=== PATIENT | female | born 1980 | race Caucasian/White ===

== ENCOUNTER 2023-07-15 14:33 | Outpatient (OUT) | payer OTHER, SELFPAY ==
[2023-07-15 15:14] LABS: Basophils Percent Auto 0.5 % (0.2-2.0); Eosinophils Absolute Auto 0.1 10^3/uL (0.0-0.7); Eosinophils Percent Auto 1.9 % (0.9-7.0); Hematocrit 37.9 % (36.0-48.0); Hemoglobin 12.4 g/dL (12.0-16.0); Immature Granulocytes Abs Auto 0.02 10^3/uL (0.00-0.03); Immature Granulocytes Pct Auto 0.3 % (0.0-0.5); Lymphocytes Absolute Auto 3.2 10^3/uL (1.2-3.8); Lymphocytes Percent Auto 43.2 % (20.5-60.0); Mean Corpuscular HGB Conc 32.7 g/dL (29.9-35.2); Mean Corpuscular Volume 82.4 fL (81.0-99.0); Mean Platelet Volume 11.4 fL (9.5-13.5); Monocytes Absolute Auto 0.5 10^3/uL (0.3-0.8); Monocytes Percent Auto 6.1 % (1.7-12.0); Neutrophils Absolute Auto 3.5 10^3/uL (1.4-6.5); Platelet Count 355 10^3/uL (150-450); Red Cell Distribution Width 13.2 % (11.0-15.0); White Blood Count 7.3 10^3/uL (4.0-11.0)
[2023-07-15 15:28] LABS: Bilirubin Urine NEGATIVE (NEGATIVE); Blood Urine NEGATIVE (NEGATIVE); Clarity Urine CLEAR (CLEAR); Color Urine LT. YELLOW (YELLOW); Glucose Urine UA NEGATIVE (NEGATIVE); Ketones Urine NEGATIVE (NEGATIVE); Leukocyte Esterase Urine SMALL (NEGATIVE); Nitrite Urine NEGATIVE (NEGATIVE); Protein Urine NEGATIVE (NEG/TRACE); Specific Gravity Urine <=1.005 (1.005-1.025); Urobilinogen Urine 0.2 EU/dL (0.2-1.0)
[2023-07-15 15:49] LABS: Bacteria Urine TRACE #/HPF (NONE SEEN); Cast Seen? NONE SEEN #/LPF (NONE SEEN); Crystals Seen? None Seen #/HPF (None Seen); Mucus Urine NONE SEEN (NONE SEEN); RBC Urine NONE SEEN #/HPF (0-2); Squamous Epithelial Cell Urine FEW #/LPF (NONE/RARE); WBC Urine 0-2 #/HPF (NONE SEEN)
[2023-07-15 15:55] LABS: Alanine Aminotransferase 26 U/L (14-59); Albumin Globulin Ratio 1.1; Alkaline Phosphatase 81 U/L (46-116); Amylase 44 U/L (25-115); Aspartate Amino Transferase 18 U/L (15-37); BUN Creatinine Ratio 9.9; Bilirubin Total 0.3 mg/dL (0.2-1.0); Calcium 9.3 mg/dL (8.5-10.1); Carbon Dioxide 26.5 mmol/L (21.0-32.0); Chloride 101 mmol/L (98-107); Estimated GFR (African America >60 (>=60); Estimated GFR (Non-African Ame >60 (>=60); Globulin 3.5 g/dL; Glucose 104 mg/dL (74-106); Potassium 3.5 mmol/L (3.5-5.1); Sodium 138 mmol/L (136-145); Total Protein 7.5 g/dL (6.4-8.2)
== END 2023-07-15 14:34 | disposition home or self-care (01) ==
LOC: LAB 14:37
PROVIDERS: PCP Family Medicine; Visit Provider Family Medicine
DX: R10.32 Left lower quadrant pain (principal)
CPT/HCPCS: 36415; 80053; 81001; 82150; 83690; 85025; 87086

== ENCOUNTER 2023-07-18 07:40 | Outpatient (OUT) | payer OTHER, SELFPAY ==
--- OUTSIDE RECORDS SUMMARY | 2023-07-18 07:45 | XMS_ITS | CCD ---
Author Organization [place] [facility] Care Team Providers Care [place] Alarm Inspector Name Role Phone DR GA LUNA Attending Unavailable CHERYL, DR KOROMA Admitting Unavailable DR GA LUNA Primary Care Unavailable DR GA LUNA Consulting Unavailable DR GA LUNA Admitting Unavailable CHERYL, DR KOROMA Primary Care Unavailable DR GA LUNA Consulting Unavailable CHERYL, DR KOROMA Attending Unavailable Results Test Name Value Interpretation Reference Range Facil ity INSULINon 12-02-2021 Insulin 23.2 uIU/mL Normal 2.6-24.9 [facility] Comment on above: Performed By: #### I NSULIN #### [facility] [address] [place] [address] Dr. Tequila Du CBC AUTO DIFFon 11-30-2021 BASO # 0.0 103/ul Normal 0.0-0.1 [facility] Comment on above: Performed By: #### C BC #### [facility] [address] [place] [address] Dr. Tequila Du Basophils/100 WBC (Bld) 0.6 % Normal 0.2-2.0 [facility] Comment on above: Performed By: #### C BC #### [facility] [address] [place] [address] Dr. Tequila Du EO # 0.2 103/ul Normal 0.0-0.7 [facility] Comment on above: Performed By: #### C BC #### [facility] [address] [place] [address] Dr. Tequila Du Eosinophils/100 WBC (Bld) 2.2 % Normal 0.9-7.0 [facility] Comment on above: Performed By: #### C BC #### [facility] [address] [place] [address] Dr. Tequila Du Erythrocyte distribution width (RBC) [Ratio] 13.2 % Normal 11.0-15.0 [facility] Comment on above: Performed By: #### C BC #### [facility] [address] [place] [address] Dr. Tequila Du Hematocrit (Bld) [Volume fraction] 42.3 % Normal 36.0-48.0 [facility] Comment on above: Performed By: #### C BC #### [facility] [address] [place] [address] Dr. Tequila Du Hemoglobin (Bld) [Mass/Vol] 13.6 g/dL Normal 12.0-16.0 [facility] Comment on above: Performed By: #### C BC #### [facility] [address] [place] [address] Dr. Tequila Du IG # 0.01 10e3/ul Normal 0.00-0.03 [facility] Comment on above: Performed By: #### C BC #### [facility] [address] [place] [address] Dr. Tequila Du IG % 0.1 % Normal 0.0-0.5 [facility] Comment on above: Performed By: #### C BC #### [facility] [address] [place] [address] Dr. Tequila Du LYMPH # 2.1 103/ul Normal 1.2-3.8 [facility] Comment on above: Performed By: #### C BC #### [facility] [address] [place] [address] Dr. Tequila Du Lymphocytes/100 WBC (Bld) 30.8 % Normal 20.5-60.0 [facility] Comment on above: Performed By: #### C BC #### [facility] [address] [place] [address] Dr. Tequila Du MANUAL DIFF REQ NO Normal [facility] Comment on above: Performed By: #### C BC #### [facility] [address] [place] [address] Dr. Tequila Du MCH (RBC) [Entitic mass] 27.4 pg Normal 26.7-34.0 [facility] Comment on above: Performed By: #### C BC #### [facility] [address] [place] [address] Dr. Tequila Du MCHC (RBC) [Mass/Vol] 32.2 g/dL Normal 29.9-35.2 [facility] Comment on above: Performed By: #### C BC #### [facility] [address] [place] [address] Dr. Tequila Du MCV (RBC) [Entitic vol] 85.3 fL Normal 81.0-99.0 [facility] Comment on above: Performed By: #### C BC #### [facility] [address] [place] [address] Dr. Tequila Du MONO # 0.4 103/ul Normal 0.3-0.8 [facility] Comment on above: Performed By: #### C BC #### [facility] [address] [place] [address] Dr. Tequila Du Monocytes/100 WBC (Bld) 6.4 % Normal 1.7-12.0 [facility] Comment on above: Performed By: #### C BC #### [facility] [address] [place] [address] Dr. Tequila Du NEUT # 4.1 103/ul Normal 1.4-6.5 [facility] Comment on above: Performed By: #### C BC #### [facility] [address] [place] [address] Dr. Tequila Du Neutrophils/100 WBC (Bld) 59.9 % Normal 43.0-75.0 [facility] Comment on above: Performed By: #### C BC #### [facility] [address] [place] [address] Dr. Tequila Du Platelet mean volume (Bld) [Entitic vol] 10.5 fL Normal 9.5-13.5 [facility] Comment on above: Performed By: #### C BC #### [facility] [address] [place] [address] Dr. Tequila Du PLT 277 103/ul Normal 150-450 [facility] Comment on above: Performed By: #### C BC #### [facility] [address] [place] [address] Dr. Tequila Du RBC 4.96 106/ul Normal 4.20-5.40 [facility] Comment on above: Performed By: #### C BC #### [facility] [address] [place] [address] Dr. Tequila Du WBC 6.9 103/ul Normal 4.0-11.0 [facility] Comment on above: Performed By: #### C BC #### [facility] [address] [place] [address] Dr. Tequila Du FREE THYROXINE INDEX T7on FTI 2.59 Normal 1.30-4.50 [facility] Comment on above: Performed By: #### L IPID, CMP, T7, TSH #### [facility] [address] [place] [address] Dr. Tequila Du T3U 32.0 % Normal 30.0-39.0 [facility] Comment on above: Performed By: #### L IPID, CMP, T7, TSH #### [facility] [address] [place] [address] Dr. Tequila Du T4 [Mass/Vol] 8.10 ug/dL Normal 4.80-13.90 [facility] Comment on above: Performed By: #### L IPID, CMP, T7, TSH #### [facility] [address] [place] [address] Dr. Tequila Du GLYCOHEMOGLOBIN A1Con 2021 ADA RECOMMENDATION SEE BELOW Normal [facility] Comment on above: Result Comment: ADA RECOMMENDED LIMIT 4.0 - 6.0 ADA THERAPEUTIC TARGET < 7.0 ACTION SUGGESTED > 7.0 Performed By: #### A 1C #### [facility] [address] [place] [address] Dr. Tequila Du Glucose [Mass/Vol] 105 mg/dL Normal [facility] Comment on above: Performed By: #### A 1C #### [facility] [address] [address] [address] Tequila Du HbA1c (Bld) [Mass fraction] 5.3 % Normal 4.5-6.2 [facility] Comment on above: Performed By: #### A 1C #### [facility] [address] [place] [address] Dr. Tequila Du LIPID PROFILEon 11-30-2021 CHOL-HDL RATIO NORM SEE BELOW Normal [facility] Comment on above: Result Comment: 3.3 - 4.4 LOW RISK 4.4 - 7.1 AVERAGE RISK 7.1 - 11.0 MODERATE RISK >11.0 HIGH RISK Performed By: #### L IPID, CMP, T7, TSH #### [facility] [address] [place] [address] Dr. Tequila Du Cholesterol [Mass/Vol] 213 mg/dL Critically high <=200 [facility] Comment on above: Performed By: #### L IPID, CMP, T7, TSH #### [facility] [address] [address] [address] Tequila Du Cholesterol in HDL [Mass/Vol] 34 mg/dL Critically low 40-60 [facility] Comment on above: Performed By: #### L IPID, CMP, T7, TSH #### [facility] [address] [address] [address] Tequila Du Cholesterol in LDL [Mass/Vol] 142.2 mg/dL Normal [facility] Comment on above: Performed By: #### L IPID, CMP, T7, TSH #### [facility] [address] [address] [address] Tequila Du Cholesterol.total/Cho lesterol in HDL [Mass ratio] 6.3 {ratio} Normal [facility] Comment on above: Performed By: #### L IPID, CMP, T7, TSH #### [facility] [address] [address] [address] Tequila Du HDL NORMAL > or = 60 mg/dl - LOW CARDIOVASCULAR RISK <40 mg/dl - HIGH CARDIOVASCULAR RISK Normal [facility] Comment on above: Performed By: #### L IPID, CMP, T7, TSH #### [facility] [address] [address] [address] Tequila Du LDL CALC NORMAL SEE BELOW Normal [facility] Comment on above: Result Comment: <100 mg/dl OPTIMAL 100 - 129 mg/dl NEAR OR ABOVE OPTIMAL 130 - 159 mg/dl BORDERLINE HIGH 160 - 189 mg/dl HIGH >190 mg/dl VERY HIGH Performed By: #### L IPID, CMP, T7, TSH #### [facility] [address] [address] [address] Tequila Du Triglyceride [Mass/Vol] 184 mg/dL Critically high <=150 [facility] Comment on above: Performed By: #### L IPID, CMP, T7, TSH #### [facility] [address] [address] [address] Tequila Du VLDL CALC 36.8 mg/dL Normal [facility] Comment on above: Performed By: #### L IPID, CMP, T7, TSH #### [facility] [address] [place] [address] Dr. Tequila Du PROF 14(COMP METB)on 022 Albumin [Mass/Vol] 4.0 g/dL Normal 3.4-5.0 [facility] Comment on above: Performed By: #### L IPID, CMP, T7, TSH #### [facility] [address] [address] [address] Tequila Du Albumin/Globulin [Mass ratio] 1.2 {ratio} Normal [facility] Comment on above: Performed By: #### L IPID, CMP, T7, TSH #### [facility] [address] [place] [address] Dr. Tequila Du ALP [Catalytic activity/Vol] 73 U/L Normal 46-116 [facility] Comment on above: Performed By: #### L IPID, CMP, T7, TSH #### [facility] [address] [place] [address] Dr. Tequila Du ALT [Catalytic activity/Vol] 44 U/L Normal 14-59 [facility] Comment on above: Performed By: #### L IPID, CMP, T7, TSH #### [facility] [address] [address] [address] Tequila Du Anion gap [Moles/Vol] 9.6 mmol/L Normal [facility] Comment on above: Performed By: #### L IPID, CMP, T7, TSH #### [facility] [address] [address] [address] Tequila Du AST [Catalytic activity/Vol] 16 U/L Normal 15-37 [facility] Comment on above: Performed By: #### L IPID, CMP, T7, TSH #### [facility] [address] [address] [address] Tequila Du Bilirubin [Mass/Vol] 0.4 mg/dL Normal 0.2-1.0 [facility] Comment on above: Performed By: #### L IPID, CMP, T7, TSH #### [facility] [address] [place] [address] Dr. Tequila Du Calcium [Mass/Vol] 9.2 mg/dL Normal 8.5-10.1 [facility] Comment on above: Performed By: #### L IPID, CMP, T7, TSH #### [facility] [address] [address] [address] Tequila Du Chloride [Moles/Vol] 102 mmol/L Normal 98-107 [facility] Comment on above: Performed By: #### L IPID, CMP, T7, TSH #### [facility] [address] [address] [address] Tequila Du CO2 [Moles/Vol] 29.3 mmol/L Normal 21.0-32.0 [facility] Comment on above: Performed By: #### L IPID, CMP, T7, TSH #### [facility] [address] [address] [address] Tequila Du Creatinine [Mass/Vol] 0.61 mg/dL Normal 0.55-1.02 [facility] Comment on above: Performed By: #### L IPID, CMP, T7, TSH #### [facility] [address] [address] [address] Tequila Du EGFR-AF EGYPTIAN >60 Normal >=60 [facility] Comment on above: Performed By: #### L IPID, CMP, T7, TSH #### [facility] [address] [address] [address] Tequila Du EGFR-NON AF EGYPTIAN >60 Normal >=60 [facility] Comment on above: Performed By: #### L IPID, CMP, T7, TSH #### [facility] [address] [address] [address] Tequila Du Globulin (S) [Mass/Vol] 3.3 g/dL Normal [facility] Comment on above: Performed By: #### L IPID, CMP, T7, TSH #### [facility] [address] [place] [address] Dr. Tequila Du Glucose [Mass/Vol] 97 mg/dL Normal 74-106 [facility] Comment on above: Performed By: #### L IPID, CMP, T7, TSH #### [facility] [address] [address] [address] Tequila Du Potassium [Moles/Vol] 3.9 mmol/L Normal 3.5-5.1 [facility] Comment on above: Performed By: #### L IPID, CMP, T7, TSH #### [facility] [address] [address] [address] Tequila Du Protein [Mass/Vol] 7.3 g/dL Normal 6.4-8.2 [facility] Comment on above: Performed By: #### L IPID, CMP, T7, TSH #### [facility] [address] [place] [address] Dr. Tequila Du Sodium [Moles/Vol] 137 mmol/L Normal 136-145 [facility] Comment on above: Performed By: #### L IPID, CMP, T7, TSH #### [facility] [address] [place] [address] Dr. Tequila Du Urea nitrogen [Mass/Vol] 5.0 mg/dL Critically low 7.0-18.0 [facility] Comment on above: Performed By: #### L IPID, CMP, T7, TSH #### [facility] [address] [place] [address] Dr. Tequila Du Urea nitrogen/Creatinine [Mass ratio] 8.2 mg/mg Normal [facility] Comment on above: Performed By: #### L IPID, CMP, T7, TSH #### [facility] [address] [place] [address] Dr. Tequila Du TSHon 11-30-2021 TSH 1.432 uIU/mL Normal 0.358-3.740 [facility] Comment on above: Performed By: #### L IPID, CMP, T7, TSH #### [facility] [address] [place] [address] Dr. Tequila Du CBC AUTO DIFFon 01-26-2021 BASO # 0.0 103/ul Normal 0.0-0.1 [facility] Comment on above: Performed By: #### C BC #### [facility] [address] [place] [address] Dr. Tequila Du Basophils/100 WBC (Bld) 0.5 % Normal 0.2-2.0 [facility] Comment on above: Performed By: #### C BC #### [facility] [address] [place] [address] Dr. Tequila Du EO # 0.2 103/ul Normal 0.0-0.7 [facility] Comment on above: Performed By: #### C BC #### [facility] [address] [place] [address] Dr. Tequila Du Eosinophils/100 WBC (Bld) 2.6 % Normal 0.9-7.0 [facility] Comment on above: Performed By: #### C BC #### [facility] [address] [place] [address] Dr. Tequila Du Erythrocyte distribution width (RBC) [Ratio] 13.3 % Normal 11.0-15.0 [facility] Comment on above: Performed By: #### C BC #### [facility] [address] [place] [address] Dr. Tequila Du Hematocrit (Bld) [Volume fraction] 43.5 % Normal 36.0-48.0 [facility] Comment on above: Performed By: #### C BC #### [facility] [address] [place] [address] Dr. Tequila Du Hemoglobin (Bld) [Mass/Vol] 14.1 g/dL Normal 12.0-16.0 [facility] Comment on above: Performed By: #### C BC #### [facility] [address] [place] [address] Dr. Tequila Du IG # 0.01 10e3/ul Normal 0.00-0.03 [facility] Comment on above: Performed By: #### C BC #### [facility] [address] [place] [address] Dr. Tequila Du IG % 0.2 % Normal 0.0-0.5 [facility] Comment on above: Performed By: #### C BC #### [facility] [address] [place] [address] Dr. Tequila Du LYMPH # 2.7 103/ul Normal 1.2-3.8 [facility] Comment on above: Performed By: #### C BC #### [facility] [address] [place] [address] Dr. Tequila Du Lymphocytes/100 WBC (Bld) 40.3 % Normal 20.5-60.0 [facility] Comment on above: Performed By: #### C BC #### [facility] [address] [place] [address] Dr. Tequila Du MANUAL DIFF REQ NO Normal [facility] Comment on above: Performed By: #### C BC #### [facility] [address] [place] [address] Dr. Tequila Du MCH (RBC) [Entitic mass] 27.6 pg Normal 26.7-34.0 [facility] Comment on above: Performed By: #### C BC #### [facility] [address] [place] [address] Dr. Tequila Du MCHC (RBC) [Mass/Vol] 32.4 g/dL Normal 29.9-35.2 [facility] Comment on above: Performed By: #### C BC #### [facility] [address] [address] [address] Tequila Du MCV (RBC) [Entitic vol] 85.1 fL Normal 81.0-99.0 [facility] Comment on above: Performed By: #### C BC #### [facility] [address] [address] [address] Tequila Du MONO # 0.4 103/ul Normal 0.3-0.8 [facility] Comment on above: Performed By: #### C BC #### [facility] [address] [address] [address] Tequila Du Monocytes/100 WBC (Bld) 6.5 % Normal 1.7-12.0 [facility] Comment on above: Performed By: #### C BC #### [facility] [address] [place] [address] Dr. Tequila Du NEUT # 3.3 103/ul Normal 1.4-6.5 [facility] Comment on above: Performed By: #### C BC #### [facility] [address] [place] [address] Dr. Tequila Du Neutrophils/100 WBC (Bld) 49.9 % Normal 43.0-75.0 [facility] Comment on above: Performed By: #### C BC #### [facility] [address] [address] [address] Tequila Du Platelet mean volume (Bld) [Entitic vol] 11.0 fL Normal 9.5-13.5 [facility] Comment on above: Performed By: #### C BC #### [facility] [address] [address] [address] Tequila Du PLT 259 103/ul Normal 150-450 [facility] Comment on above: Performed By: #### C BC #### [facility] [address] [address] [address] Tequila Du RBC 5.11 106/ul Normal 4.20-5.40 [facility] Comment on above: Performed By: #### C BC #### [facility] [address] [address] [address] Tequila Du WBC 6.6 103/ul Normal 4.0-11.0 [facility] Comment on above: Performed By: #### C BC #### [facility] [address] [address] [address] Tequila Du FREE THYROXINE INDEX T7on FTI 2.10 Normal [facility] Comment on above: Performed By: #### A 1C #### [facility] [address] [address] [address] Tequila Du T3U 28.0 % Normal 23.5-40.5 [facility] Comment on above: Performed By: #### A 1C #### [facility] [address] [address] [address] Tequila Du T4 [Mass/Vol] 7.50 ug/dL Normal 5.53-11.00 [facility] Comment on above: Performed By: #### A 1C #### [facility] [address] [address] [address] Tequila Du GLYCOHEMOGLOBIN A1Con 2020 ADA RECOMMENDATION ADA THERAPEUTIC TARGET 6.0 - 7.0 ACTION SUGGESTED > 7.0 Normal [facility] Comment on above: Performed By: #### A 1C #### [facility] [address] [address] [address] Tequila Du Glucose [Mass/Vol] 114 mg/dL Normal [facility] Comment on above: Performed By: #### A 1C #### [facility] [address] [address] [address] Tequila Du HbA1c (Bld) [Mass fraction] 5.6 % Normal <=6.0 [facility] Comment on above: Performed By: #### A 1C #### [facility] [address] [place] [address] Dr. Tequila Du LIPID PROFILEon 01-26-2021 CHOL-HDL RATIO NORM SEE BELOW Normal [facility] Comment on above: Result Comment: 3.3 - 4.4 LOW RISK 4.4 - 7.1 AVERAGE RISK 7.1 - 11.0 MODERATE RISK >11.0 HIGH RISK Performed By: #### A 1C #### [facility] [address] [address] [address] Tequila Du Cholesterol [Mass/Vol] 246 mg/dL Critically high <=200 [facility] Comment on above: Performed By: #### A 1C #### [facility] [address] [address] [address] Tequila Du Cholesterol in HDL [Mass/Vol] 37 mg/dL Normal [facility] Comment on above: Performed By: #### A 1C #### [facility] [address] [address] [address] Tequila Du Cholesterol in LDL [Mass/Vol] 175.8 mg/dL Normal [facility] Comment on above: Performed By: #### A 1C #### [facility] [address] [place] [address] Dr. Tequila Du Cholesterol.total/Cho lesterol in HDL [Mass ratio] 6.6 {ratio} Normal [facility] Comment on above: Performed By: #### A 1C #### [facility] [address] [address] [address] Tequila Du HDL NORMAL > or = 60 mg/dl - LOW CARDIOVASCULAR RISK <40 mg/dl - HIGH CARDIOVASCULAR RISK Normal [facility] Comment on above: Performed By: #### A 1C #### [facility] [address] [place] [address] Dr. Tequila Du LDL CALC NORMAL SEE BELOW Normal [facility] Comment on above: Result Comment: <100 mg/dl OPTIMAL 100 - 129 mg/dl NEAR OR ABOVE OPTIMAL 130 - 159 mg/dl BORDERLINE HIGH 160 - 189 mg/dl HIGH >190 mg/dl VERY HIGH Performed By: #### A 1C #### [facility] [address] [address] [address] Tequila Du Triglyceride [Mass/Vol] 166 mg/dL Critically high <=150 [facility] Comment on above: Performed By: #### A 1C #### [facility] [address] [address] [address] Tequila Du VLDL CALC 33.2 mg/dL Normal [facility] Comment on above: Performed By: #### A 1C #### [facility] [address] [place] [address] Dr. Tequila Du PROF 14(COMP METB)on 021 Albumin [Mass/Vol] 4.1 g/dL Normal 3.5-5.0 [facility] Comment on above: Performed By: #### C MP, T7, LIPID, TSH #### [facility] [address] [place] [address] Dr. Tequila Du Albumin/Globulin [Mass ratio] 1.3 {ratio} Normal [facility] [facility] Comment on above: Performed By: #### C MP, T7, LIPID, TSH #### [facility] [address] [place] [address] Dr. Tequila Du ALP [Catalytic activity/Vol] 68 U/L Normal 38-126 [facility] Comment on above: Performed By: #### C MP, T7, LIPID, TSH #### [facility] [address] [place] [address] Dr. Tequila Du ALT [Catalytic activity/Vol] 54 U/L Critically high 9-52 [facility] Comment on above: Performed By: #### C MP, T7, LIPID, TSH #### [facility] [address] [place] [address] Dr. Tequila Du Anion gap [Moles/Vol] 13.1 mmol/L Normal [facility] Comment on above: Performed By: #### C MP, T7, LIPID, TSH #### [facility] [address] [place] [address] Dr. Tequila Du AST [Catalytic activity/Vol] 20 U/L Normal 14-36 [facility] Comment on above: Performed By: #### C MP, T7, LIPID, TSH #### [facility] [address] [place] [address] Dr. Tequila Du Bilirubin [Mass/Vol] 0.4 mg/dL Normal 0.2-1.3 [facility] Comment on above: Performed By: #### C MP, T7, LIPID, TSH #### [facility] [address] [address] [address] Tequila Du Calcium [Mass/Vol] 9.6 mg/dL Normal 8.4-10.2 [facility] [place] [facility] Comment on above: Performed By: #### C MP, T7, LIPID, TSH #### [facility] [address] [place] [address] Dr. Tequila Du Chloride [Moles/Vol] 102 mmol/L Normal 98-107 [facility] Comment on above: Performed By: #### C MP, T7, LIPID, TSH #### [facility] [address] [place] [address] Dr. Tequila Du CO2 [Moles/Vol] 29.2 mmol/L Normal 22.0-30.0 [facility] Comment on above: Performed By: #### C MP, T7, LIPID, TSH #### [facility] [address] [address] [address] Tequila Du Creatinine [Mass/Vol] 0.58 mg/dL Normal 0.52-1.04 [facility] Comment on above: Performed By: #### C MP, T7, LIPID, TSH #### [facility] [address] [place] [address] Dr. Tequila Du EGFR-AF EGYPTIAN >60 Normal >=60 [facility] Comment on above: Performed By: #### C MP, T7, LIPID, TSH #### [facility] [address] [place] [address] Dr. Tequila Du EGFR-NON AF EGYPTIAN >60 Normal >=60 [facility] Comment on above: Performed By: #### C MP, T7, LIPID, TSH #### [facility] [address] [address] [address] Tequila Du Globulin (S) [Mass/Vol] 3.2 g/dL Normal [facility] Comment on above: Performed By: #### C MP, T7, LIPID, TSH #### [facility] [address] [address] [address] Tequila Du Glucose [Mass/Vol] 92 mg/dL Normal 74-106 [facility] [place] [facility] Comment on above: Performed By: #### C MP, T7, LIPID, TSH #### [facility] [address] [address] [address] Tequila Du Potassium [Moles/Vol] 4.3 mmol/L Normal 3.4-5.0 [facility] Comment on above: Performed By: #### C MP, T7, LIPID, TSH #### [facility] [address] [place] [address] Dr. Tequila Du Protein [Mass/Vol] 7.3 g/dL Normal 6.1-8.2 [facility] [place] [facility] Comment on above: Performed By: #### C MP, T7, LIPID, TSH #### [facility] [address] [place] [address] Dr. Tequila Du Sodium [Moles/Vol] 140 mmol/L Normal 137-145 [facility] [place] [facility] Comment on above: Performed By: #### C MP, T7, LIPID, TSH #### [facility] [address] [place] [address] Dr. Tequila Du Urea nitrogen [Mass/Vol] 7.0 mg/dL Normal 7.0-17.0 [facility] Comment on above: Performed By: #### C MP, T7, LIPID, TSH #### [facility] [address] [place] [address] Dr. Tequila Du Urea nitrogen/Creatinine [Mass ratio] 12.1 mg/mg Normal [facility] Comment on above: Performed By: #### C MP, T7, LIPID, TSH #### [facility] [address] [place] [address] Dr. Tequila Du TSHon 01-26-2021 TSH 1.581 uIU/mL Normal 0.470-4.680 [facility] Comment on above: Performed By: #### A 1C #### [facility] [address] [place] [address] Dr. Tequila Du TSH RANGE SEE BELOW Normal [facility] Comment on above: Result Comment: <0.3 4 UIU/ml HYPERTHYROID 0.34-5.60 UIU/ml EUTHYROID >5.60 UIU/ml HYPOTHYROID Performed By: #### A 1C #### [facility] [address] [address] [address] Tequila Du Encounters Encounter Date Encounter Type Care Provider Facility Start: 12-04-2021 Encounter for genera l adult medical examination without abnormal findings DR GA LUNA [facility] Start: 11-30-2021 End: 12-01-[address] GA LUNA Facility:[facility] Start: 11-30-2021 End: 12-01-2021 Encounter for general adult medical examination without abnormal findings DR GA LUNA Facility:[facility] Start: 01-26-2021 End: 01-27-[address] GA LUNA Facility:[facility] Payers Date Payer Category Payer Unknown [id number] 1980 Unknown [id number] 1957 Unknown [id number] Summary Purpose Family History No Family History Records Found Advance Directives No Advanced Directives Records Found Additional Source Comments INFORMATION SOURCE (unrecogn ized section and content) DATE CREATED AUTHOR 12/05/2021 [facility] FOR RECORDS PERTAINING TO PATIENTS WHO ARE OR HAVE BEEN ENROLLED IN A CHEMICAL DEPENDENCY/SUBSTANCEABUSE PROGRAM, SOME INFORMATION MAY BE OMITTED. This clinical summary was aggregated from multiple sources. Caution should be exercised in using it in the provision of clinical care. This summary normalizes information from multiple sources, and as a consequence, information in this document may materially change the coding, format and clinical context of patient data. In addition, data may be omitted in some cases. CLINICAL DECISIONS SHOULD BE BASED ON THE PRIMARY CLINICAL RECORDS. [employer] provides no warranty or guarantee of the accuracy or completeness of information in this document.
--- NOTE | 2023-07-18 07:54 | CT_ITS ---
The [address] [address] Patient Name: MALACHI AGUIRRE MRN: [id number] date: 1980 Sex: F Assigned Patient Location: CT Current Patient Location: CT Accession/Order Number: [id number] Exam Date: 07/18/2023 09:10 Report Date: 07/18/2023 10:57 At the request of: GA LUNA Procedure: CT abdomen pelvis w con EXAM: CT abdomen pelvis w con HISTORY: Left lower quadrant abdominal pain COMPARISON: None. TECHNIQUE: CT of the abdomen and pelvis was performed using intravenous and oral contrast. Sagittal and coronal reformats were performed. FINDINGS: VISUALIZED LOWER CHEST: The visualized lung bases are clear. LIVER: There is hepatomegaly and diffuse hepatic steatosis. BILIARY SYSTEM: Unremarkable. SPLEEN, PANCREAS, ADRENAL GLANDS: Unremarkable. KIDNEYS AND URETERS: The kidneys enhance symmetrically. There is no hydronephrosis. 9 mm cyst in the lower pole of the right kidney. URINARY BLADDER: Unremarkable. GASTROINTESTINAL: No evidence of bowel obstruction or colitis. A normal appendix is visualized. RETROPERITONEUM: No lymphadenopathy or mass. MESENTERY: No adenopathy, ascites, or free air. VASCULATURE: The abdominal aorta is normal in caliber. ABDOMINAL WALL: Unremarkable. PELVIS: There is a 3.7 x 2.8 cm right ovarian cyst. There is a fibroid uterus. No pelvic ascites or lymphadenopathy. BONY STRUCTURES: No suspicious bony lesions are noted. CT/CT abdomen pelvis w con IMPRESSION: 1. Right ovarian cyst measuring 3.7 cm. 2. Fibroid uterus. 3. Fatty liver. 4. Small fat-containing umbilical hernia. Electronically authenticated by: MINA ABERNATHY Date: 07/18/2023 10:57
== END 2023-07-18 07:41 | disposition home or self-care (01) ==
LOC: CT 07:43
PROVIDERS: PCP Family Medicine; Visit Provider Family Medicine
DX: R10.32 Left lower quadrant pain (principal); N83.291 Other ovarian cyst, right side; K76.0 Fatty (change of) liver, not elsewhere classified; K42.9 Umbilical hernia without obstruction or gangrene
CPT/HCPCS: 74177; Q9967

== ENCOUNTER 2024-05-01 16:58 | Emergency (ER) | payer OTHER, SELFPAY ==
[2024-05-01 17:11] VITALS: BP 140/82; PULSE 92; TEMP 37.1; O2SAT 97; BMI 30.1
--- NOTE | 2024-05-01 17:43 | ED.GENADUL1 ---
HPI HPI - General Adult General Chief complaint: Urogenital-Female Stated complaint: SPOTTING Time Seen by Provider: 05/01/24 17:32 Source: patient Mode of arrival: walk-in History of Present Illness HPI narrative: Patient is a 43-year-old female who presents to the emergency department for evaluation of suprapubic abdominal pain radiating into the vaginal area since having intercourse with her around 1 PM this afternoon. She had a total abdominal hysterectomy in December. She does not have ovaries. She states she started spotting after intercourse. She continues to have persistent pain. She took ibuprofen without improvement. She has no flank or back pain. No other urinary symptoms. She has not saturated a pad. She sees a urban renewal manager in [place]. Related Data Previous Rx's ?Medication ?Instructions ?Recorded amoxicillin 875 mg-potassium 1 tab PO Q12H #20 tabs 05/01/24 clavulanate 125 mg tablet hydrocodone 5 mg-acetaminophen 325 1 tab PO Q6H PRN pain 3 days #12 05/01/24 mg tablet tabs ketorolac 10 mg tablet 10 mg PO TID PRN pain #10 tabs 05/01/24 ondansetron 4 mg disintegrating 4 mg PO Q6H PRN nausea and 05/01/24 tablet vomiting #12 tabs Allergies Allergy/AdvReac Type Severity Reaction Status Date / Time Sulfa (Sulfonamide Allergy Severe Nausea Verified 05/01/24 17:16 Antibiotics) Opioid HPI Opioid Management Most Recent Opioid Data: Last Pain Scale 6 05/01/24 18:03 05/01/24 Last MAR Pain Assessment 05/01/24 18:03 Review of Systems ROS Constitutional Denies: fever or chills Ears, nose, mouth, and throat Denies: throat pain or nasal congestion Cardiovascular Denies: chest pain Respiratory Denies: shortness of breath or cough Gastrointestinal Reports: abdominal pain; Denies: nausea, vomiting or diarrhea Genitourinary Reports: pelvic pain and vaginal bleeding Musculoskeletal Denies: back pain Integumentary/Breast Denies: rash Neurological Denies: numbness in extremities or weakness in extremities Hematologic/Lymphatic Denies: easy bruising or easy bleeding PFSH PFSH Social History Little interest or pleasure in doing things: not at all Feeling down, depressed, or hopeless: not at all Exam Narrative Exam Narrative: Gen.: Awake, alert, in no distress Head: Normocephalic, atraumatic ENT: Moist mucous membranes Respiratory: No respiratory distress Gastrointestinal: Abdomen is soft, nondistended and mildly tender to palpation in the suprapubic abdomen with no pain out of proportion on exam. No flank or CVA tenderness Extremities: Moves extremities equally Psych: Normal mood and affect Neuro: No focal neuro deficit Skin: Warm, dry, intact Constitutional Vital Signs, click to edit/add: Last Vital Signs Temp 98.7 F 05/01/24 17:11 Pulse 92 H 05/01/24 17:11 Resp 18 05/01/24 17:11 BP 121/67 05/01/24 20:22 Pulse Ox 97 05/01/24 17:11 O2 Del Method Room Air 05/01/24 17:11 Course Vital Signs Vital signs: Vital Signs Temperature 98.7 F 05/01/24 17:11 Pulse Rate 92 H 05/01/24 17:11 Respiratory Rate 18 05/01/24 17:11 Blood Pressure 140/82 05/01/24 17:11 Pulse Oximetry 97 05/01/24 17:11 Oxygen Delivery Method Room Air 05/01/24 17:11 Temperature 98.7 F 05/01/24 17:11 Pulse Rate 92 H 05/01/24 17:11 Respiratory Rate 18 05/01/24 17:11 Blood Pressure 121/67 05/01/24 20:22 Pulse Oximetry 97 05/01/24 17:11 Oxygen Delivery Method Room Air 05/01/24 17:11 Medical Decision Making [facility] Narrative Medical decision making narrative: Patient medicated with Percocet and Toradol with significant improvement and she is resting comfortably. She is hemodynamically stable with unremarkable lab studies and urine specimen. She had no significant bleeding in the emergency department. CT shows a small amount of fluid in the pelvis with no definite abscess. Case was discussed with Dr. Rothman who is on-call for [employer] and he recommended antibiotic coverage and following up as an outpatient. Patient is comfortable with treatment plan and she is sitting comfortably on reevaluation, eager for discharge home. She was provided with a work note, started on Augmentin, short course of analgesics, Toradol and Zofran. Pelvic rest encouraged. She was instructed to contact her urban renewal manager tomorrow for follow-up. Return to the ER if symptoms change or worsen SUPERVISED APC VISIT, PHYSICIAN ATTESTATION: Based on the medical record the care appears appropriate. ? Medical Records Medical records reviewed: Yes I reviewed the patient's medical records Lab Data Lab results reviewed: Yes I reviewed the patient's lab results Labs: Lab Results 05/01/24 05/01/24 Range/Units 17:40 17:50 WBC 10.8 (4.0-11.0) 10^3/uL RBC 5.07 (4.20-5.40) 10^6/uL Hgb 13.7 (12.0-16.0) g/dL Hct 42.4 (36.0-48.0) % MCV 83.6 (81.0-99.0) fL MCH 27.0 (26.7-34.0) pg MCHC 32.3 (29.9-35.2) g/dL RDW 14.4 (11.0-15.0) % Plt Count 282 (150-450) 10^3/uL MPV 11.1 (9.5-13.5) fL Neut % (Auto) 74.2 (43.0-75.0) % Lymph % (Auto) 19.6 L (20.5-60.0) % [place] % (Auto) 4.6 (1.7-12.0) % Eos % (Auto) 1.0 (0.9-7.0) % Baso % (Auto) 0.3 (0.2-2.0) % Neut # (Auto) 8.0 H (1.4-6.5) 10^3/uL Lymph # (Auto) 2.1 (1.2-3.8) 10^3/uL [place] # (Auto) 0.5 (0.3-0.8) 10^3/uL Eos # (Auto) 0.1 (0.0-0.7) 10^3/uL Baso # (Auto) 0.0 (0.0-0.1) 10^3/uL Abs Immat Gran (auto) 0.03 (0.00-0.03) 10^3/uL Imm/Tot Granulo (auto) 0.3 (0.0-0.5) % PT 10.3 (9.0-11.6) sec INR 0.97 Sodium 140 (136-145) mmol/L Potassium 3.8 (3.5-5.1) mmol/L Chloride 105 (98-107) mmol/L Carbon Dioxide 26.2 (21.0-32.0) mmol/L Anion Gap 12.6 BUN 10.0 (7.0-18.0) mg/dL Creatinine 0.80 (0.55-1.02) mg/dL Est GFR ( Amer) >60 (>=60 mL/min/1.73m^2) Est GFR (Non-Af Amer) >60 (>=60 mL/min/1.73m^2) BUN/Creatinine Ratio 12.5 Glucose 103 (74-106) mg/dL Calcium 9.4 (8.5-10.1) mg/dL Total Bilirubin 0.2 (0.2-1.0) mg/dL AST 25 (15-37) U/L ALT 51 (14-59) U/L Alkaline Phosphatase 95 (46-116) U/L Total Protein 7.4 (6.4-8.2) g/dL Albumin 4.1 (3.4-5.0) g/dL Globulin 3.3 g/dL Albumin/Globulin Ratio 1.2 Urine Color Lt. yellow (YELLOW) Urine Clarity Clear (CLEAR) Urine pH 7.0 (5.0-9.0) Ur Specific [place] 1.010 (1.005-1.025) Urine Protein Negative (NEG/TRACE) mg/dL Urine Glucose (UA) Negative (NEGATIVE) mg/dL Urine Ketones Negative (NEGATIVE) mg/dL Urine Occult Blood Large A (NEGATIVE) Urine Nitrite Negative (NEGATIVE) Urine Bilirubin Negative (NEGATIVE) Urine Urobilinogen 0.2 (0.2-1.0) EU/dL Ur Leukocyte Esterase Negative (NEGATIVE) Urine RBC 10-20 A (0-2) #/HPF Urine WBC 0-2 A (NONE SEEN) #/HPF Ur Squamous Epith Cells Rare (NONE/RARE) #/LPF Urine Crystals None seen (None Seen) #/HPF Urine Bacteria Trace A (NONE SEEN) #/HPF Urine Casts None seen (NONE SEEN) #/LPF Urine Mucus None seen (NONE SEEN) Ur Culture Indicated? No Imaging Data CT scan - abdomen: Attestation: I have reviewed the pertinent imaging results. Discharge Plan Discharge Chief Complaint: Urogenital-Female Clinical Impression: Pelvic pain Patient Disposition: Home, Self-Care Time of Disposition Decision: 21:00 Condition: Good Prescriptions / Home Meds: New ketorolac 10 mg tablet 10 mg PO TID PRN (Reason: pain) Qty: 10 0RF hydrocodone-acetaminophen 5-325 mg tablet 1 tab PO Q6H PRN (Reason: pain) 3 Days Qty: 12 0RF Rx Instructions: DX: R10.9 ondansetron 4 mg tablet,disintegrating 4 mg PO Q6H PRN (Reason: nausea and vomiting) Qty: 12 0RF amoxicillin-pot clavulanate 875-125 mg tablet 1 tab PO Q12H Qty: 20 0RF Print Language: East Timorese Instructions: Pelvic Pain (ED) Additional Instructions: Please call your urban renewal manager office for follow up tomorrow Referrals: Kenn Logan MD [Primary Care Provider] - 1 week
[2024-05-01] MEDS: KETOROLAC TROMETHAMINE 30 MG/ML VIAL IVP (18:03)
[2024-05-01] MEDS: OXYCODONE HCL/ACETAMINOPHEN 5MG/325MG 1 TAB PO (18:03)
[2024-05-01 18:05] LABS: Basophils Percent Auto 0.3 % (0.2-2.0); Eosinophils Absolute Auto 0.1 10^3/uL (0.0-0.7); Hematocrit 42.4 % (36.0-48.0); Hemoglobin 13.7 g/dL (12.0-16.0); Immature Granulocytes Abs Auto 0.03 10^3/uL (0.00-0.03); Immature Granulocytes Pct Auto 0.3 % (0.0-0.5); Lymphocytes Absolute Auto 2.1 10^3/uL (1.2-3.8); Lymphocytes Percent Auto 19.6 % (20.5-60.0); Mean Corpuscular HGB Conc 32.3 g/dL (29.9-35.2); Mean Corpuscular Volume 83.6 fL (81.0-99.0); Mean Platelet Volume 11.1 fL (9.5-13.5); Monocytes Absolute Auto 0.5 10^3/uL (0.3-0.8); Monocytes Percent Auto 4.6 % (1.7-12.0); Neutrophils Percent Auto 74.2 % (43.0-75.0); Platelet Count 282 10^3/uL (150-450); Red Blood Count 5.07 10^6/uL (4.20-5.40); Red Cell Distribution Width 14.4 % (11.0-15.0); White Blood Count 10.8 10^3/uL (4.0-11.0)
[2024-05-01 18:19] LABS: Bilirubin Urine NEGATIVE (NEGATIVE); Blood Urine LARGE (NEGATIVE); Clarity Urine CLEAR (CLEAR); Color Urine LT. YELLOW (YELLOW); Glucose Urine UA NEGATIVE (NEGATIVE); Ketones Urine NEGATIVE (NEGATIVE); Leukocyte Esterase Urine NEGATIVE (NEGATIVE); Nitrite Urine NEGATIVE (NEGATIVE); Protein Urine NEGATIVE (NEG/TRACE); Urobilinogen Urine 0.2 EU/dL (0.2-1.0)
[2024-05-01 18:20] LABS: INR 0.97; Prothrombin Time 10.3 sec (9.0-11.6)
[2024-05-01 18:23] LABS: Alanine Aminotransferase 51 U/L (14-59); Albumin Globulin Ratio 1.2; Albumin Level 4.1 g/dL (3.4-5.0); Alkaline Phosphatase 95 U/L (46-116); Anion Gap 12.6; Aspartate Amino Transferase 25 U/L (15-37); BUN Creatinine Ratio 12.5; Bilirubin Total 0.2 mg/dL (0.2-1.0); Calcium 9.4 mg/dL (8.5-10.1); Carbon Dioxide 26.2 mmol/L (21.0-32.0); Chloride 105 mmol/L (98-107); Estimated GFR (African America >60 (>=60 mL/min/1.73m^2); Estimated GFR (Non-African Ame >60 (>=60 mL/min/1.73m^2); Globulin 3.3 g/dL; Glucose 103 mg/dL (74-106); Potassium 3.8 mmol/L (3.5-5.1); Sodium 140 mmol/L (136-145); Total Protein 7.4 g/dL (6.4-8.2)
[2024-05-01 18:31] LABS: Bacteria Urine TRACE #/HPF (NONE SEEN); Cast Seen? NONE SEEN #/LPF (NONE SEEN); Crystals Seen? None Seen #/HPF (None Seen); Mucus Urine NONE SEEN (NONE SEEN); Squamous Epithelial Cell Urine RARE #/LPF (NONE/RARE); Urine Culture Indicated NO; WBC Urine 0-2 #/HPF (NONE SEEN)
[2024-05-01 20:22] VITALS: BP 121/67; BP 147/96
[2024-05-01] MEDS: AMOXICILLIN/POT CLAV 875-125 MG TABLET 1 TAB PO (21:21)
== END 2024-05-01 21:23 | disposition home or self-care (01) ==
PROVIDERS: Physician Assistant; Emergency Provider Internal Medicine; PCP Family Medicine
DX: R10.2 Pelvic and perineal pain (principal); Z90.710 Acquired absence of both cervix and uterus
CPT/HCPCS: 36415; 74177; 80053; 81001; 85025; 85610; 96374; 99285; J1885; Q9967

== ENCOUNTER 2024-09-23 08:25 | Outpatient (OUT) | payer OTHER, SELFPAY ==
--- OUTSIDE RECORDS SUMMARY | 2024-09-23 08:31 | XMS_ITS | Clinical Summary ---
Author Organization [facility] Address [address], [address] [place] [address] Care Team Providers Care Criminal Justice Professor Name Role Phone Kenn Logan MD Primary Care Provider [phone] Allergies Active Allergy Reactions Criticality Noted Date Comments Sulfa Antibiotics Nausea And Vomiting Low Medications pantoprazole (PROTONIX) 40 MG tablet 07/10/2023 Active Probiotic Product (PROBIOTIC DAILY PO) Take by mouth Active Active Problems Problem Noted Date Diagnosed Date Menorrhagia with regular cycle 01/19/2024 Uterine leiomyoma 01/19/2024 Dysmenorrhea, unspecified 01/19/2024 Unspecified ovarian cyst, right side 01/19/2024 Social History Tobacco Use Types Packs/Day Years Used Date Smoking Tobacco: Every Day Cigarettes 0.5 3 Smokeless Tobacco: Never Tobacco Cessation:Ready to Q uit: Not Asked; Counseling Given: Not Answered Alcohol Use Standard Drinks/Week Comments Not Currently 0 (1 standard drink = 0.6 oz pur e alcohol) [facility] Utilities Answer Date Recorded In the past 12 months has e [employer], gas, oil, or water company threatened to shut off services in your home? No 05/08/2024 Overall Financial Resource Strain (CARDIA) Answe r Date Recorded How hard is it for you to pa y for the very basics like food, housing, medical care, and heating? Patient declined 12/05/2023 PHQ-2 Answer Date Recorded PHQ-9 Total Score 0 05/04/2024 Hunger Vital Sign Answer Date Recorded Within the past 12 months, y ou worried that your food would run out before you got the money to buy more. Never true 05/09/19 25 Within the past 12 months, t he food you bought just didn't last and you didn't have money to get more. Never true 05/08/2024 PRAPARE - Transportation Answer Date Re corded In the past 12 months, has l ack of transportation kept you from medical appointments or from getting medications? No 04/11 In the past 12 months, has l ack of transportation kept you from meetings, work, or from getting things needed for daily living? No 05/08/2024 Housing Stability Vital Sign Answer Dmitri e Recorded In the last 12 months, was t here a time when you were not able to pay the mortgage or rent on time? No 05/08/2024 In the past 12 months, how m any times have you moved where you were living? 0 05/08/2024 At any time in the past 12 m [facility], were you homeless or living in a group home (including now)? No 05/08/2024 Food Insecurity Answer Date Recorded Within the past 12 months, y ou worried that your food would run out before you got the money to buy more. 1 05/08/2024 Within the past 12 months, t he food you bought just didn't last and you didn't have money to get more. 1 05/08/2024 Interpersonal Safety Domain Source: IP Abuse Scr eening Answer Date Recorded Physical abuse Denies 12/21/2023 Verbal abuse Denies 12/21/2023 Emotional abuse Denies 12/21/2023 Financial abuse Denies 12/21/2023 Sexual abuse Denies 12/21/2023 Comments No Sex and Gender Information Value Date Recorded Sex Assigned at Female 05/08/2024 7:17 AM EDT Legal Sex Female 3:11 PM EDT Gender Identity Female 05/08/2024 7:17 AM EDT Sexual Orientation Straight 05/08/2024 7: 17 AM EDT Last Filed Vital Signs Vital Sign Reading Time Taken Comments Blood Pressure 124/82 06/14/2024 3:15 PM EDT Pulse 67 12/21/2023 10:15 AM EST Temperature 36.2 C (97.2 F) 12/21/2023 9:30 AM EST Respiratory Rate 12 12/21/2023 10:15 AM EST Oxygen Saturation 94% 12/21/2023 10:15 AM EST Inhaled Oxygen Concentration - - Weight 86.2 kg (190 lb) 06/14/2024 3:15 PM EDT Height 165.1 cm (5' 5 ) 06/14/2024 3:15 PM EDT Body Mass Index 31.62 06/14/2024 3:15 PM EDT Plan of Treatment Health Maintenance Due Date Last Done Comments Varicella vaccine (1 of 2 - 13+ 2-dose series) 05/29/1995 HIV screen 1997 Hepatitis C screen 2000 DTaP/Tdap/Td vaccine (1 - Tdap) 2001 Hepatitis B vaccine (1 of 3 - 19+ 3-dose series) 2001 Pneumococcal 0-49 years Vaccine (1 of 2 - PCV) 2001 Diabetes screen 2017 Breast cancer screen 2022 Lipids 2022 COVID-19 Vaccine ( - 2023-2 5 season) 2023 Flu vaccine (#1) 09/09/2024 Depression Screen 05/04/2025 05/04/2024, 05/04/2024 Cervical cancer screen Discontinued Pap smear Discontinued 08/05/2023 HPV (without or with Pap) Discontinued HPV vaccine (No Doses Required) Completed Hepatitis A vaccine Aged Out No longe r eligible based on patient's age to complete this topic Hib vaccine Aged Out No longer eligi ble based on patient's age to complete this topic Meningococcal (ACWY) vaccine Aged Out No longer eligible based on patient's age to complete this topic Meningococcal B vaccine Aged Out No l onger eligible based on patient's age to complete this topic Polio vaccine Aged Out No longer elig ible based on patient's age to complete this topic Procedures Procedure Name Priority Date/Time Associated Diagnosis Comments APPLICATION RELEASE MANAGER CYTOLOGY Routine 08/05/2023 12:00 AM EDT from Last 3 Months or Most Recently Relevant to Health Maintenance Results * APPLICATION RELEASE MANAGER Cytology (08/05/2023 12:00 AM EDT) Cytology Report Path Number: [id number] DIAGNOSIS Imaged ThinPrep Pap - Cervical (1 monolayer slide): Specimen Adequacy: Satisfactory for evaluation. - Endocervical/trans formation zone component present. Descriptive Diagnosis: Negative for intraepithelial lesion or malignancy. Comments: Specimen was screened at [facility], [address] [place] [address] [employer]otech Screener: VITAL[employer] Electronically Signed Out HELADIO Salamanca(ASCP) cs/08/16/2023 Source of Specimen: A: Imaged ThinPrep Pap - Cervical (1 monolayer slide) HPV Reflex?........... ...........HPV if Abnormal Clinical History Irregular Z01.419 Routine food service agent exam without abnormal findings LMP: 07/07/2023 Processing Lab: [address] [address] [place] [address] This Pap Test has been evaluated with the assistance of the ThinPrep Pap Test Imaging System. The Pap smear is a screening test primarily for squamous epithelial lesions, which is subject to both false negative and false positive results. Your patient should be reminded to consult you immediately if she experiences any suspicious signs or symptoms, regardless of her Pap smear result. GYNECOLOGIC CYTOLOGY REPORT Patient Name: SUYAPA AGUIRRE [facility] Rec: [id number] [facility] [employer] [facility] ANATOMIC PATHOLOG[facility] [address] [place], [place] [address] [place] CERVICAL MATERIAL 08/05/2023 024 9:23 AM EDT Sue Streeter PA-C PATHOLOGY/CYTOLOGY ORDER JOHANNE Final Result [facility] [address] [place] [address], [facility] [phone] [place] from Last 3 Months or Most Recently Relevant to Health Maintenance Insurance [facility] Advance Directives * Full Code (Latest Code Status on File) Date Activated Date Inactivated Comments 12/21/2023 6:15 AM 12/21/2023 12:50 PM Care Teams Criminal Justice Professor Relationship Specialty Start Date End Date Kenn Logan MD [address] [place] [id number] PCP - General Family Medicine 07/07/23
--- OUTSIDE RECORDS SUMMARY | 2024-09-23 08:32 | XMS_ITS | CCD ---
Author Organization [facility] Care Team Providers Care [employer] Name Role Phone DR GA LOGAN Attending Unavailable CHERYL, DR KOROMA Admitting Unavailable CHERYL, DR KOROMA Primary Care Unavailable CHERYL, DR KOROMA Consulting Unavailable CHERYL, DR KOROMA Admitting Unavailable CHERYL, DR KOROMA Primary Care Unavailable CHERYL, DR KOROMA Consulting Unavailable CHERYL, DR KOROMA Attending Unavailable Ga Logan MD Primary Care Provider [phone] GA LOGAN Primary Care Unavailable SUE STREETER Referring Unavailable SENDY LOGANLAS M Primary Care Unavailable SUE STREETRE Referring Unavailable CHERYL GA M Primary Care Unavailable KOMAL BANKS Attending Unavail able KOMAL BANKS Admitting Unavail able CHERYL GA M Primary Care Unavailable SUE STREETER Referring Unavailable Allergies Allergy Classification Reported Allergen(s) Allergy Type Date of Onset Reaction(s) Facility (4 sources) Sulfonamides (Antibiotic) Propensity to adverse reactions to drug 4 Nausea And Vomiting [facility] Medications Current Medications Medication Drug Class(es) Dates Sig (Normalized) Sig (Original) acetaminophen 325 mg / HYDROcodone bitartrate 5 mg oral tablet (1 source) Opioid Agonist Start: 12-21-2023 End: 12-26-2023 HYDROcodone-acetami nophen (NORCO) 5-325 MG per tablet Indications: Postoperative pain Take 1 tablet by mouth every 6 hours as needed for Pain for up to 5 days. Intended supply: 5 days. Take lowest dose possible to manage pain Max Daily Amount: 4 tablets 10 tablet 12/21/2023 12/26/2023 Active amoxicillin 875 mg / clavulanate 125 mg oral tablet (1 source) Penicillin-class Antibacterial Start: 05-01-2024 take 1 tablet by mouth once in the morning amoxicillin-clavula abhishek (AUGMENTIN) 875-125 MG per tablet Take 1 tablet by mouth in the morning and 1 tablet in the evening. 05/01/2024 Active calcium chloride 0.0014 meq/ml / potassium chloride 0.004 meq/ml / sodium chloride 0.103 meq/ml / sodium lactate 0.028 meq/ml injectable solution (1 source) Start: 12-21-2023 IntraVENous, at 100 mL/hr, CONTINUOUS, Starting on Thu12/21/23 at 0645, Pre-op (day of surgery) 84 hr estradiol 0.24865 mg/hr transdermal system (2 sources) Estrogen Start: 12-21-2023 estradiol (VIVELLE-DOT) 0.025 MG/24HR PTTW Place 1 patch onto the skin Twice a Week 8 patch 12/21/2023 Active fluconazole 150 mg oral tablet (1 source) Azole Antifungal Start: 12-30-2023 fluconazole (DIFLUCAN) 150 MG tablet TAKE 1 TABLET BY MOUTH EVERY DAY ONE DOSE 12/30/2023 Active ketorolac tromethamine 10 mg oral tablet (2 sources) Nonsteroidal Anti-inflammatory Drug, Cyclooxygenase Inhibitor Start: 12-21-2023 End: 12-20-2024 take 1 tablet by mouth every six hours as needed for pain ketorolac (TORADOL) 10 MG tablet Take 1 tablet by mouth every 6 hours as needed for Pain 20 tablet 12/21/2023 12/20/2024 Active 2 ml metoclopramide 5 mg/ml prefilled syringe (1 source) Dopamine-2 Receptor Antagonist Start: 12-21-2023 End: 12-22-2023 10 mg, IntraVENous, ONCE PRN, 1 dose, Starting on Thu12/21/23 at 0910, Until Thu12/22/23 at 0910, Nausea, Secondary antiemetic therapy., PACU only metroNIDAZOLE 500 mg oral tablet (1 source) Nitroimidazole Antimicrobial Start: 05-11-2024 End: 05-18-2024 take 1 tablet by mouth twice daily metroNIDAZOLE (FLAGYL) 500 MG tablet Take 1 tablet by mouth 2 times daily for 7 days 14 tablet 05/11/2024 05/18/2024 Active naloxone 0.4 mg in 10 mL sodium chloride syringe (1 source) Start: 12-21-2023 IntraVENous, PRN, Opioid Reversal, Starting on Thu12/21/23 at 0910, PRN if respiratory rate is less than 6/min and patient is difficult to arouse then notify physician STAT. Mix 9 mL of sodium chloride 0.9% with 0.4 mg (1 mL) of naloxone (NARCAN) in 10 mL syringe. (Note: dilution is 0.04 mg/mL) Give 0.08 mg (2 mL of special dilution), slow IV push, repeat up to 0.4 mg (10 mL) or until patient is responsive to physical stimulation and respiratory rate is equal to or greater than 6 breaths/min. Continue to observe, if no response within 3 minutes of administration of 0.4 mg (10 mL) total, repeat dose (0.4 mg as administered previously). Concentration 0.04 mg/mL, PACU only 2 ml ondansetron 2 mg/ml injection (1 source) Serotonin-3 Receptor Antagonist Start: 12-21-2023 End: 12-22-2023 4 mg, IntraVENous, ONCE PRN, 1 dose, Starting on Thu12/21/23 at 0910, Until Thu12/22/23 at 0910, Nausea, Initial antiemetic therapy., PACU only oxyCODONE hydrochloride 5 mg oral tablet (1 source) Opioid Agonist Start: 12-21-2023 End: 12-22-2023 take 1 dose by mouth once 5 mg, Oral, ONCE PRN, 1 dose, Starting on Thu12/21/23 at 0910, Until Thu12/22/23 at 0910, Pain Moderate (4-6), Pain Severe (7-10), PHASE II, PACU only pantoprazole 40 mg delayed release oral tablet (4 sources) Proton Pump Inhibitor Start: 07-10-2023 pantoprazole (PROTONIX) 40 MG tablet 07/10/2023 Active Polyethylene Glycols (3 sources) take 17 g by mouth once daily Polyethylene Glycol 3350 (MIRALAX PO) Take 17 g by mouth daily Active take 1 capsule by mouth once rome ly Polyethylene Glycol 3350 (MIRALAX PO) Take by mouth 1 capsule daily. 0 Active Probiotic Product (PROBIOTIC DAILY PO) (3 sources) Probiotic Produc t (PROBIOTIC DAILY PO) Take by mouth Active Completed/Discontinued Medications Medication Drug Class(es) Dates Sig (Normalized) Sig (Original) acetaminophen 325 mg oral tablet (1 source) Start: 12-21-2023 End: 12-21-2023 take 4000 mg by mouth every twenty-four hours 650 mg, Oral, ONCE, 1 dose, On Thu12/21/23 at 0645, Maximum dose of acetaminophen is 4000 mg from all sources in 24 hours., Pre-op (day of surgery) dimenhyDRINATE 50 mg oral tablet (1 source) Start: 12-21-2023 End: 12-21-2023 take 1 dose by mouth once daily 50 mg, Oral, ONCE, 1 dose, On Thu12/21/23 at 0645, Pre-op (day of surgery) 0.4 ml enoxaparin sodium 100 mg/ml prefilled syringe (1 source) Low Molecular Weight Heparin Start: 12-21-2023 End: 12-21-2023 inject 1 dose by subcutaneous injection once daily 40 mg, SubCUTAneous, ONCE, 1 dose, On Thu12/21/23 at 0645, Indication of Use: Prophylaxis-DVT/PE, Administer by deep subCUTAneous injection with pt lying down. Alternate injection sites on abdominal wall. Do not rub site after injection. Check with provider prior to any invasive procedure., Pre-op (day of surgery) 2 ml fentaNYL 0.05 mg/ml injection (2 sources) Opioid Agonist Start: 12-21-2023 50 mcg, IntraVENous, EVERY 5 MIN PRN, 2 doses, Starting on Thu12/21/23 at 0910, Until Discontinued, Pain Severe (7-10), For Phase I. If Phase II oral narcotics have been administered in the last 60 minutes, do not administer IV narcotics unless specifically approved by provider., PACU only Start: 12-21-2023 25 mcg, IntraV ENous, EVERY 5 MIN PRN, 2 doses, Starting on Thu12/21/23 at 0910, Until Discontinued, Pain Moderate (4-6), For Phase I. If Phase II oral narcotics have been administered in the last 60 minutes, do not administer IV narcotics unless specifically approved by provider., PACU only 5 ml sodium chloride 9 mg/ml injection (6 sources) Start: 12-21-2023 5-40 mL, Intra VENous, EVERY 12 HOURS SCHEDULED (2 times per day), First dose on Thu12/21/23 at 0930, Until Discontinued, For Line Patency: Peripheral IV = 5 mL; Midline or Central Line = 10 mL/lumen. If following IV push medication, administer flush at same rate as the IV push. Flush volume is determined by type of infusion therapy being given. For non-viscous solutions use: Peripheral IV = 5 mL Midline or Central Line = 10 mL/lumen For viscous solutions (i.e. blood components, parenteral nutrition, contrast media, or after obtaining blood sample) use: Peripheral IV = 10 mL Midline or Central Line = 20 mL/lumen, PACU only Start: 12-21-2023 IntraVENous, a t 5-250 mL/hr, PRN, if patient receiving piggyback infusions and maintenance fluids are not ordered, Starting on Thu12/21/23 at 0910, For piggyback infusion, administer at same rate as piggyback for a total of 25 mL. Enter 25 mL into dose field and piggyback rate into rate field of order. If piggyback is infusing at a rate less than 100 mL/hr, enter 25 mL into dose field and 100 mL/hr into rate field of order., PACU only Start: 12-21-2023 5-40 mL, Intra VENous, PRN, Starting on Thu12/21/23 at 0910, Until Discontinued, Line Care, After every IV line use, For Line Patency: Peripheral IV = 5 mL; Midline or Central Line = 10 mL/lumen. If following IV push medication, administer flush at same rate as the IV push. Flush volume is determined by type of infusion therapy being given. For non-viscous solutions use: Peripheral IV = 5 mL Midline or Central Line = 10 mL/lumen For viscous solutions (i.e. blood components, parenteral nutrition, contrast media, or after obtaining blood sample) use: Peripheral IV = 10 mL Midline or Central Line = 20 mL/lumen, PACU only Problems Active Problems Problem Classification Problem Date Documented Date Episodic/Chronic Endometriosis (1 source) Uterine adenomyosis; Translations: [Adenomyosis] 12-21-2023 Chronic Menstrual disorders (6 sources) Menorrhagia; Translations: [Excessive and frequent menstruation with regular cycle] Onset: 12-21-2023 12-21-2023 Chronic Other female genital disorders (1 source) Postcoital bleeding; Translations: [Postcoital and contact bleeding] 05-11-2024 Chronic Other female genital disorders (1 source) Postcoital and contact bleeding; Translations: [Postcoital and contact bleeding] Onset: 05-11-2024 Chronic Other female genital disorders (2 sources) Vaginal discharge; Translations: [Other specified noninflammatory disorders of vagina] 05-11-2024 Episodic Other female genital disorders (1 source) Other specified noninflammatory disorders of vagina; Translations: [Other specified noninflammatory disorders of vagina] Onset: 05-25-2024 Episodic Other nervous system disorders (1 source) Postoperative pain ; Translations: [Other acute postprocedural pain] 12-21-2023 Episodic Residual codes; unclassified (1 source) Acquired absence of both cervix and uterus; Translations: [Acquired absence of both cervix and uterus] Onset: 05-11-2024 Episodic Unclassified (1 source) Adenomyosis of the uterus; Translations: [Adenomyosis of the uterus] Onset: 12-21-2023 Past or Other Problems Problem Classification Problem Date Documented Date Episodic/Chronic Benign neoplasm of uterus (4 sources) Uterine leiomyoma; Translations: [Leiomyoma of uterus, unspecified] Onset: 12-21-2023 12-21-2023 Episodic Other nervous system disorders (1 source) Other acute postprocedural pain; Translations: [Other acute postprocedural pain] Onset: 12-21-2023 Episodic Ovarian cyst (2 sources) Cyst of right ovary; Translations: [Unspecified ovarian cyst, right side] Onset: 01-19-2024 01-19-2024 Episodic Results Test Name Value Interpretation Reference Range Facility Vaginitis DNA Probeon 2024 Yamilet Negative Normal NEG [facility] Comment on above: Result Comment: for Yamilet sp. Method of testing is a DNA probe intended for detection and identification of Yamilet species, Gardnerella vaginalis, and Trichomonas vaginalis nucleic acid in vaginal fluid specimens from patients with symptoms of vaginitis/vaginosis. Performed By: #### V AGP #### [facility] [employer] [address] [place] [address] Lab Animal Technologist: Cordell Sanchez MD [facility] [address] [place] [address] Lab Animal Technologist: Jesse Sturtz, MD Gardnerella Positive Abnormal NEG [facility] Comment on above: Result Comment: for Gardnerella vaginalis Performed By: #### V AGP #### [facility] [address] [place] [address] Lab Animal Technologist: Cordell Sanchez MD [facility] [address] [place] [address] Lab Animal Technologist: Jesse Espinosa MD Trichomonas Negative Normal NEG [facility] Comment on above: for Trichomonas Vagi nalis Result Comment: for Trichomonas Vaginalis Performed By: #### V AGP #### [facility] [address] [place] [address] Lab Animal Technologist: Cordell Sanchez MD [facility] [address] [place] [address] [place] [address] Lab Animal Technologist: Jesse Espinosa MD Yamilet species Negative NEGATIVE [facility] Comment on above: for Yamilet sp. Method of testing is a DNA probe intended for detection and identification of Yamilet species, Gardnerella vaginalis, and Trichomonas vaginalis nucleic acid in vaginal fluid specimens from patients with symptoms of vaginitis/vaginosis. GARDNERELLA VAGINALIS Positive Abnormal NEGATIVE [facility] Comment on above: for Gardnerella vagi nalis Interpretation and review of laboratory results Abnormal [facility] Source .VAGINAL SWAB [facility] Source .VAGINAL SWAB [facility] Comment on above: Performed By: #### V AGP #### [facility] [address] [place] [address] Lab Animal Technologist: Cordell Sanchez MD [facility] [address] [place] [address] [place] [address] Lab Animal Technologist: Jesse Espinosa MD Vaginitis DNA Probeon 2024 Yamilet Negative Normal [facility] Comment on above: Result Comment: for Yamilet sp. Method of testing is a DNA probe intended for detection and identification of Yamilet species, Gardnerella vaginalis, and Trichomonas vaginalis nucleic acid in vaginal fluid specimens from patients with symptoms of vaginitis/vaginosis. Performed By: #### V AGP #### [address] [place] [address] Lab Animal Technologist: Cordell Sanchez MD [facility] [address] [place] [address] [place] [place], [place] [id number] Lab Animal Technologist: Jesse Espinosa MD Gardnerella Positive Abnormal NEG [facility] Comment on above: Result Comment: for Gardnerella vaginalis Performed By: #### V AGP #### [address] [place] [address] Lab Animal Technologist: Cordell Sanchez MD [facility] [address] [place] [address] [place] [address] Lab Animal Technologist: Jesse Espinosa MD Trichomonas Negative [facility] Comment on above: Result Comment: for Trichomonas Vaginalis Performed By: #### V AGP #### [address] [address] Lab Animal Technologist: Cordell Sanchez MD [facility] [address] [place] [address] [place] [address] Lab Animal Technologist: Jesse Espinosa MD Vaginitis DNA Probeon 2024 Source .VAGINAL SWAB [facility] Comment on above: Performed By: #### V AGP #### [address] [address] Lab Animal Technologist: Cordell Sanchez MD [facility] [address] [place] [address] Lab Animal Technologist: Jesse Espinosa MD HCG, ,Urineon 12-20 Beta HCG ( test) Ql (U) Negative Normal [facility] Comment on above: Result Comment: Spec imens with hCG levels near the threshold of the test (25 mIU/mL) may give a negative or indeterminate result. In such cases, another test should be performed with a new specimen in 48-72 hours. If early is suspected clinically in this setting, correlation with quantitative serum b-hCG level is suggested. [employer] has confirmed the use of plasma for this test. This has not been cleared or approved by the U.S. Food and Drug Administration. The FDA has determined that such clearance is not necessary. Performed By: #### U HCG #### [facility] [address] [place] [address] Lab Animal Technologist: Jesse Espinosa MD , Urineon HCG ( test) Ql (U) Negative NEGATIVE [facility] Comment on above: Specimens with hCG l evels near the threshold of the test (25 mIU/mL) may give a negative or indeterminate result. In such cases, another test should be performed with a new specimen in 48-72 hours. If early is suspected clinically in this setting, correlation with quantitative serum b-hCG level is suggested. [employer] has confirmed the use of plasma for this test. This has not been cleared or approved by the U.S. Food and Drug Administration. The FDA has determined that such clearance is not necessary. [facility] Surgical Pathology Reporton 12-21-2023 Surgical Pathology Report (NOTE) Path Number: [id number] -- Diagnosis -- UTERUS, CERVIX, RIGHT FALLOPIAN TUBE AND OVARY, HYSTERECTOMY AND RIGHT SALPINGO-OOPHORECTOMY : -INTRAMURAL LEIOMYOMATA. -BENIGN PROLIFERATIVE ENDOMETRIUM. -BENIGN CERVIX WITH ACUTE AND CHRONIC CERVICITIS. -BENIGN RIGHT OVARY WITH BENIGN CYSTIC FOLLICLES. -BENIGN RIGHT FALLOPIAN TUBE WITH BENIGN PARATUBAL CYST. Jesse Espinosa M.D. Electronically Signed Out earlene12/24/2023 Clinical Information Pre-Op Diagnosis: MENORRHAGIA WITH REGULAR CYCLE; UTERINE LEIOMYOMA, UNSPECIFIED LOCATION; ADENOMYOSIS Operative Findings: UTERUS, CERVIX, RIGHT FALLOPIAN TUBE AND OVARY Operation Performed: HYSTERECTOMY VAGINAL ROBOTIC ASSISTED LAPAROSCOPIC, POSSIBLE RIGHT SALPINGO-OOPHORECTOMY se Source of Specimen A: CERVIX, UTERUS, RIGHT FALLOPIAN TUBE AND OVARY Gross Description COLLEEN AGUIRRE, CERVIX, UTERUS, RIGHT FALLOPIAN TUBE AND OVARY Received in formalin is a uterus with attached cervix and right tube and ovary. Dimensions: Uterus and cervix 11.9 x 7.5 x 5.5 cm. Weight: Uterus and cervix 161 grams, right tube and ovary 25 grams. Serosa: [place]-grace and smooth. Cervix: 3.8 x 3.8 x 3.1 cm, unremarkable with a patent os. Endometrium: The cavity is 7.0 x 3.2 cm with a pink-red surface and ranges in thickness from 0.1 to 0.2 cm. The endomyometrial junction is ill-defined. Myometrium: The myometrium has a maximum thickness of 2.2 cm and is finely trabecular with a few grace-white, whorled myomatous nodules up to 1.6 cm. There is no hemorrhage or necrosis. Tubes/ovaries: The 7.0 cm long x 0.5 cm in diameter fimbriated fallopian tube segment has a pink-grace serosa with numerous paratubal cysts up to 1.4 cm. The 4.6 x 3.5 x 2.5 cm intact corresponding ovary has a holt-grace external surface. Sectioning reveals a multicystic cut surface. The cysts are up to 2.5 cm and the largest is consistent with corpus luteum. There are no excrescences. Cassette summary: 1 anterior cervix, 2 posterior cervix, 3-4 anterior endomyometrium full thickness sections, 5-6 posterior endomyometrium full thickness sections, 7-10 tube and ovary, fimbriated end in entirety. matt Vaughn/se:12/21/2023 Microscopic Description Microscopic examination performed. Processing Lab: [address] [id number] Interpretation Performed at [address] [id number] SURGICAL PATHOLOGY CONSULTATION Patient Name: COLLEEN AGUIRRE [facility] Rec: [id number] [facility] [employer] [facility] ANATOMIC PATHOLOGY [address] [place] [address]. [place], [place] [address] Normal [facility] Cytology Reporton 08-05-2023 Cytology report Cyto stain.thin prep Doc (Cvx/Vag) (NOTE) Path Number: [id number] DIAGNOSIS Imaged ThinPrep Pap - Cervical (1 monolayer slide): Specimen Adequacy: Satisfactory for evaluation. - Endocervical/transfor mation zone component present. Descriptive Diagnosis: Negative for intraepithelial lesion or malignancy. Comments: Specimen was screened at [facility], [address] [place] [address] [employer] Screener: [employer] Electronically Signed Out HELADIO Salamanca(ASCP) cs/08/16/2023 Source of Specimen: A: Imaged ThinPrep Pap - Cervical (1 monolayer slide) HPV Reflex?.............. ........HPV if Abnormal Clinical History Irregular Z01.419 Routine copper etcher exam without abnormal findings LMP: 07/07/2023 Processing Lab: [address] [id number] Interpretation performed at [facility], [address] [place] [address] This Pap Test has been evaluated with [...] GYNECOLOGIC CYTOLOGY REPORT Patient Name: SUYAPA AGUIRRE [facility] Rec: [id number] [facility] ANATOMIC PATHOLOGY [address] [place] [id number] Normal [facility] INSULINon 12-02-2021 Insulin 23.2 uIU/mL Normal 2.6-24.9 [facility] Comment on above: Performed By: #### I NSULIN #### [facility] [address] [place] [address] Dr. Tequila Du CBC AUTO DIFFon 11-30-2021 BASO # 0.0 103/ul Normal 0.0-0.1 [facility] Comment on above: Performed By: #### C BC #### [facility] [address] [place] [address] Dr. Tequila Du Basophils/100 WBC (Bld) 0.6 % Normal 0.2-2.0 [facility] Comment on above: Performed By: #### C BC #### [facility] [address] [place] [address] Dr. Tequila Du EO # 0.2 103/ul Normal 0.0-0.7 [facility] Comment on above: Performed By: #### C BC #### [facility] [address] [place] [address] Dr. Tequila Du Eosinophils/100 WBC (Bld) 2.2 % Normal 0.9-7.0 [facility] Comment on above: Performed By: #### C BC #### [facility] [address] [place] [address] Dr. Tequila Du Erythrocyte distribution width (RBC) [Ratio] 13.2 % Normal 11.0-15.0 [facility] Comment on above: Performed By: #### C BC #### [facility] [address] [place] [address] Dr. Tequila Du Hematocrit (Bld) [Volume fraction] 42.3 % Normal 36.0-48.0 [facility] Comment on above: Performed By: #### C BC #### [facility] [address] [place] [address] Dr. Tequila Du Hemoglobin (Bld) [Mass/Vol] 13.6 g/dL Normal 12.0-16.0 [facility] Comment on above: Performed By: #### C BC #### [facility] [address] [place] [address] Dr. Tequila Du IG # 0.01 10e3/ul Normal 0.00-0.03 [facility] Comment on above: Performed By: #### C BC #### [facility] [address] [place] [address] Dr. Tequila Du IG % 0.1 % Normal 0.0-0.5 [facility] Comment on above: Performed By: #### C BC #### [facility] [address] [place] [address] Dr. Tequila Du LYMPH # 2.1 103/ul Normal 1.2-3.8 [facility] Comment on above: Performed By: #### C BC #### [facility] [address] [place] [address] Dr. Tequila Du Lymphocytes/100 WBC (Bld) 30.8 % Normal 20.5-60.0 [facility] Comment on above: Performed By: #### C BC #### [facility] [address] [place] [address] Dr. Tequila Du MANUAL DIFF REQ NO Normal [facility] Comment on above: Performed By: #### C BC #### [facility] [address] [place] [address] Dr. Tequila Du MCH (RBC) [Entitic mass] 27.4 pg Normal 26.7-34.0 [facility] Comment on above: Performed By: #### C BC #### [facility] [address] [place] [address] Dr. Tequila Du MCHC (RBC) [Mass/Vol] 32.2 g/dL Normal 29.9-35.2 [facility] Comment on above: Performed By: #### C BC #### [facility] [address] [place] [address] Dr. Tequila Du MCV (RBC) [Entitic vol] 85.3 fL Normal 81.0-99.0 [facility] Comment on above: Performed By: #### C BC #### [facility] [address] [place] [address] Dr. Tequila Du MONO # 0.4 103/ul Normal 0.3-0.8 [facility] Comment on above: Performed By: #### C BC #### [facility] [address] [place] [address] Dr. Tequila Du Monocytes/100 WBC (Bld) 6.4 % Normal 1.7-12.0 [facility] Comment on above: Performed By: #### C BC #### [facility] [address] [place] [address] Dr. Tequila Du NEUT # 4.1 103/ul Normal 1.4-6.5 [facility] Comment on above: Performed By: #### C BC #### [facility] [address] [place] [address] Dr. Teuqila Du Neutrophils/100 WBC (Bld) 59.9 % Normal 43.0-75.0 [facility] Comment on above: Performed By: #### C BC #### [facility] [address] [place] [address] Dr. Tequila Du Platelet mean volume (Bld) [Entitic vol] 10.5 fL Normal 9.5-13.5 [facility] Comment on above: Performed By: #### C BC #### [facility] [address] [place] [address] Dr. Tequila Du PLT 277 103/ul Normal 150-450 [facility] Comment on above: Performed By: #### C BC #### [facility] [address] [place] [address] Dr. Tequila Du RBC 4.96 106/ul Normal 4.20-5.40 [facility] Comment on above: Performed By: #### C BC #### [facility] [address] [place] [address] Dr. Tequila Du WBC 6.9 103/ul Normal 4.0-11.0 [facility] Comment on above: Performed By: #### C BC #### [facility] [address] [place] [address] Dr. Tequila Du FREE THYROXINE INDEX T7on FTI 2.59 Normal 1.30-4.50 [facility] Comment on above: Performed By: #### L IPID, CMP, T7, TSH #### [facility] [address] [place] [address] Dr. Tequila Du T3U 32.0 % Normal 30.0-39.0 [facility] Comment on above: Performed By: #### L IPID, CMP, T7, TSH #### [facility] [address] [place] [address] Dr. Tequila Du T4 [Mass/Vol] 8.10 ug/dL Normal 4.80-13.90 [facility] Comment on above: Performed By: #### L IPID, CMP, T7, TSH #### [facility] [address] [address] [address] Tequila Du GLYCOHEMOGLOBIN A1Con 2021 ADA RECOMMENDATION SEE BELOW Normal [facility] Comment on above: Result Comment: ADA RECOMMENDED LIMIT 4.0 - 6.0 ADA THERAPEUTIC TARGET < 7.0 ACTION SUGGESTED > 7.0 Performed By: #### A 1C #### [facility] [address] [place] [address] Dr. Tequila Du Glucose [Mass/Vol] 105 mg/dL Normal [facility] Comment on above: Performed By: #### A 1C #### [facility] [address] [place] [address] Dr. Tequila Du HbA1c (Bld) [Mass fraction] 5.3 % Normal 4.5-6.2 [facility] Comment on above: Performed By: #### A 1C #### [facility] [address] [place] [address] Dr. Tequila Du LIPID PROFILEon 11-30-2021 CHOL-HDL RATIO NORM SEE BELOW Normal [facility] Comment on above: Result Comment: 3.3 - 4.4 LOW RISK 4.4 - 7.1 AVERAGE RISK 7.1 - 11.0 MODERATE RISK >11.0 HIGH RISK Performed By: #### L IPID, CMP, T7, TSH #### [facility] [address] [place] [address] Dr. Tequila Du Cholesterol [Mass/Vol] 213 mg/dL Critically high <=200 [facility] Comment on above: Performed By: #### L IPID, CMP, T7, TSH #### [facility] [address] [place] [address] Dr. Tequila Du Cholesterol in HDL [Mass/Vol] 34 mg/dL Critically low 40-60 [facility] Comment on above: Performed By: #### L IPID, CMP, T7, TSH #### [facility] [address] [place] [address] Dr. Tequila Du Cholesterol in LDL [Mass/Vol] 142.2 mg/dL Normal [facility] Comment on above: Performed By: #### L IPID, CMP, T7, TSH #### [facility] [address] [address] [address] Tequila Du Cholesterol.total/Cho lesterol in HDL [Mass ratio] 6.3 {ratio} Normal [facility] Comment on above: Performed By: #### L IPID, CMP, T7, TSH #### [facility] [address] [address] [address] Tequila Du HDL NORMAL > or = 60 mg/dl - LO W CARDIOVASCULAR RISK <40 mg/dl - HIGH CARDIOVASCULAR RISK Normal [facility] Comment on above: Performed By: #### L IPID, CMP, T7, TSH #### [facility] [address] [address] [address] Tequila Du LDL CALC NORMAL SEE BELOW Normal [facility] Comment on above: Result Comment: <100 mg/dl OPTIMAL 100 - 129 mg/dl NEAR OR ABOVE OPTIMAL 130 - 159 mg/dl BORDERLINE HIGH 160 - 189 mg/dl HIGH >190 mg/dl VERY HIGH Performed By: #### L IPID, CMP, T7, TSH #### [facility] [address] [address] [address] Tequila Du Triglyceride [Mass/Vol] 184 mg/dL Critically high <=150 [facility] Comment on above: Performed By: #### L IPID, CMP, T7, TSH #### [facility] [address] [address] [address] Tequila Du VLDL CALC 36.8 mg/dL Normal [facility] Comment on above: Performed By: #### L IPID, CMP, T7, TSH #### [facility] [address] [address] [address] Tequila Du PROF 14(COMP METB)on 022 Albumin [Mass/Vol] 4.0 g/dL Normal 3.4-5.0 [facility] Comment on above: Performed By: #### L IPID, CMP, T7, TSH #### [facility] [address] [address] [address] Tequila Du Albumin/Globulin [Mass ratio] 1.2 {ratio} Normal [facility] Comment on above: Performed By: #### L IPID, CMP, T7, TSH #### [facility] [address] [address] [address] Tequila Du ALP [Catalytic activity/Vol] 73 U/L Normal 46-116 [facility] Comment on above: Performed By: #### L IPID, CMP, T7, TSH #### [facility] [address] [place] [address] Dr. Tequila Du ALT [Catalytic activity/Vol] 44 U/L Normal 14-59 [facility] Comment on above: Performed By: #### L IPID, CMP, T7, TSH #### [facility] [address] [place] [address] Dr. Tequila Du Anion gap [Moles/Vol] 9.6 mmol/L Normal [facility] Comment on above: Performed By: #### L IPID, CMP, T7, TSH #### [facility] [address] [place] [address] Dr. Tequila Du AST [Catalytic activity/Vol] 16 U/L Normal 15-37 [facility] Comment on above: Performed By: #### L IPID, CMP, T7, TSH #### [facility] [address] [place] [address] Dr. Tequila Du Bilirubin [Mass/Vol] 0.4 mg/dL Normal 0.2-1.0 [facility] Comment on above: Performed By: #### L IPID, CMP, T7, TSH #### [facility] [address] [place] [address] Dr. Tequila Du Calcium [Mass/Vol] 9.2 mg/dL Normal 8.5-10.1 [facility] Comment on above: Performed By: #### L IPID, CMP, T7, TSH #### [facility] [address] [place] [address] Dr. Tequila Du Chloride [Moles/Vol] 102 mmol/L Normal 98-107 [facility] Comment on above: Performed By: #### L IPID, CMP, T7, TSH #### [facility] [address] [place] [address] Dr. Tequila Du CO2 [Moles/Vol] 29.3 mmol/L Normal 21.0-32.0 [facility] Comment on above: Performed By: #### L IPID, CMP, T7, TSH #### [facility] [address] [address] [address] Tequila Du Creatinine [Mass/Vol] 0.61 mg/dL Normal 0.55-1.02 [facility] Comment on above: Performed By: #### L IPID, CMP, T7, TSH #### [facility] [address] [address] [address] Tequila Du EGFR-AF MEXICAN >60 Normal >=60 [facility] Comment on above: Performed By: #### L IPID, CMP, T7, TSH #### [facility] [address] [address] [address] Tequila Du EGFR-NON AF MEXICAN >60 Normal >=60 [facility] Comment on above: Performed By: #### L IPID, CMP, T7, TSH #### [facility] [address] [address] [address] Tequila Du Globulin (S) [Mass/Vol] 3.3 g/dL Normal [facility] Comment on above: Performed By: #### L IPID, CMP, T7, TSH #### [facility] [address] [address] [address] Tequila Du Glucose [Mass/Vol] 97 mg/dL Normal 74-106 [facility] Comment on above: Performed By: #### L IPID, CMP, T7, TSH #### [facility] [address] [address] [address] Tequila Du Potassium [Moles/Vol] 3.9 mmol/L Normal 3.5-5.1 [facility] Comment on above: Performed By: #### L IPID, CMP, T7, TSH #### [facility] [address] [address] [address] Tequila Du Protein [Mass/Vol] 7.3 g/dL Normal 6.4-8.2 [facility] Comment on above: Performed By: #### L IPID, CMP, T7, TSH #### [facility] [address] [place] [address] Dr. Tequila Du Sodium [Moles/Vol] 137 mmol/L Normal 136-145 [facility] Comment on above: Performed By: #### L IPID, CMP, T7, TSH #### [facility] [address] [place] [address] Dr. Tequila Du Urea nitrogen [Mass/Vol] 5.0 mg/dL Critically low 7.0-18.0 [facility] Comment on above: Performed By: #### L IPID, CMP, T7, TSH #### [facility] [address] [place] [address] Dr. Tequila uD Urea nitrogen/Creatinine [Mass ratio] 8.2 mg/mg Normal [facility] Comment on above: Performed By: #### L IPID, CMP, T7, TSH #### [facility] [address] [place] [address] Dr. Tequila Du TSHon 11-30-2021 TSH 1.432 uIU/mL Normal 0.358-3.740 [facility] Comment on above: Performed By: #### L IPID, CMP, T7, TSH #### [facility] [address] [place] [address] Dr. Tequila Du CBC AUTO DIFFon 01-26-2021 BASO # 0.0 103/ul Normal 0.0-0.1 [facility] Comment on above: Performed By: #### C BC #### [facility] [address] [place] [address] Dr. Tequila Du Basophils/100 WBC (Bld) 0.5 % Normal 0.2-2.0 [facility] Comment on above: Performed By: #### C BC #### [facility] [address] [place] [address] Dr. Tequila Du EO # 0.2 103/ul Normal 0.0-0.7 [facility] Comment on above: Performed By: #### C BC #### [facility] [address] [place] [address] Dr. Tequila Du Eosinophils/100 WBC (Bld) 2.6 % Normal 0.9-7.0 [facility] Comment on above: Performed By: #### C BC #### [facility] [address] [place] [address] Dr. Tequila Du Erythrocyte distribution width (RBC) [Ratio] 13.3 % Normal 11.0-15.0 [facility] Comment on above: Performed By: #### C BC #### [facility] [address] [place] [address] Dr. Tequila Du Hematocrit (Bld) [Volume fraction] 43.5 % Normal 36.0-48.0 [facility] Comment on above: Performed By: #### C BC #### [facility] [address] [place] [address] Dr. Tequila Du Hemoglobin (Bld) [Mass/Vol] 14.1 g/dL Normal 12.0-16.0 [facility] Comment on above: Performed By: #### C BC #### [facility] [address] [place] [address] Dr. Tequila Du IG # 0.01 10e3/ul Normal 0.00-0.03 [facility] Comment on above: Performed By: #### C BC #### [facility] [address] [place] [address] Dr. Tequila Du IG % 0.2 % Normal 0.0-0.5 [facility] Comment on above: Performed By: #### C BC #### [facility] [address] [place] [address] Dr. Tequila Du LYMPH # 2.7 103/ul Normal 1.2-3.8 [facility] Comment on above: Performed By: #### C BC #### [facility] [address] [place] [address] Dr. Tequila Du Lymphocytes/100 WBC (Bld) 40.3 % Normal 20.5-60.0 [facility] Comment on above: Performed By: #### C BC #### [facility] [address] [place] [address] Dr. Tequila Du MANUAL DIFF REQ NO Normal [facility] Comment on above: Performed By: #### C BC #### [facility] [address] [place] [address] Dr. Tequila Du MCH (RBC) [Entitic mass] 27.6 pg Normal 26.7-34.0 [facility] Comment on above: Performed By: #### C BC #### [facility] [address] [place] [address] Dr. Tequila Du MCHC (RBC) [Mass/Vol] 32.4 g/dL Normal 29.9-35.2 [facility] Comment on above: Performed By: #### C BC #### [facility] [address] [place] [address] Dr. Tequila Du MCV (RBC) [Entitic vol] 85.1 fL Normal 81.0-99.0 [facility] Comment on above: Performed By: #### C BC #### [facility] [address] [place] [address] Dr. Tequila Du MONO # 0.4 103/ul Normal 0.3-0.8 [facility] Comment on above: Performed By: #### C BC #### [facility] [address] [place] [address] Dr. Tequila Du Monocytes/100 WBC (Bld) 6.5 % Normal 1.7-12.0 [facility] Comment on above: Performed By: #### C BC #### [facility] [address] [place] [address] Dr. Tequila Du NEUT # 3.3 103/ul Normal 1.4-6.5 [facility] Comment on above: Performed By: #### C BC #### [facility] [address] [place] [address] Dr. Tequila Du Neutrophils/100 WBC (Bld) 49.9 % Normal 43.0-75.0 [facility] Comment on above: Performed By: #### C BC #### [facility] [address] [place] [address] Dr. Tequila Du Platelet mean volume (Bld) [Entitic vol] 11.0 fL Normal 9.5-13.5 [facility] Comment on above: Performed By: #### C BC #### [facility] [address] [address] [address] Tequila Du PLT 259 103/ul Normal 150-450 [facility] Comment on above: Performed By: #### C BC #### [facility] [address] [address] [address] Tequila Du RBC 5.11 106/ul Normal 4.20-5.40 [facility] Comment on above: Performed By: #### C BC #### [facility] [address] [address] [address] Tequila Du WBC 6.6 103/ul Normal 4.0-11.0 [facility] Comment on above: Performed By: #### C BC #### [facility] [address] [address] [address] Tequila Du FREE THYROXINE INDEX T7on FTI 2.10 Normal [facility] Comment on above: Performed By: #### A 1C #### [facility] [address] [address] [address] Tequila Du T3U 28.0 % Normal 23.5-40.5 [facility] Comment on above: Performed By: #### A 1C #### [facility] [address] [address] [address] Tequila Du T4 [Mass/Vol] 7.50 ug/dL Normal 5.53-11.00 [facility] Comment on above: Performed By: #### A 1C #### [facility] [address] [address] [address] Tequila Du GLYCOHEMOGLOBIN A1Con 2020 ADA RECOMMENDATION ADA THERAPEUTIC TARGET 6.0 - 7.0 ACTION SUGGESTED > 7.0 [facility] Comment on above: Performed By: #### A 1C #### [facility] [address] [address] [address] Tequila Du Glucose [Mass/Vol] 114 mg/dL Normal [facility] Comment on above: Performed By: #### A 1C #### [facility] [address] [address] [address] Tequila Du HbA1c (Bld) [Mass fraction] 5.6 % Normal <=6.0 [facility] Comment on above: Performed By: #### A 1C #### [facility] [address] [address] [address] Tequila Du LIPID PROFILEon 01-26-2021 CHOL-HDL RATIO NORM SEE BELOW Normal [facility] Comment on above: Result Comment: 3.3 - 4.4 LOW RISK 4.4 - 7.1 AVERAGE RISK 7.1 - 11.0 MODERATE RISK >11.0 HIGH RISK Performed By: #### A 1C #### [facility] [address] [place] [address] Dr. Tequila Du Cholesterol [Mass/Vol] 246 mg/dL Critically high <=200 [facility] Comment on above: Performed By: #### A 1C #### [facility] [address] [address] [address] Tequlia Du Cholesterol in HDL [Mass/Vol] 37 mg/dL Normal [facility] Comment on above: Performed By: #### A 1C #### [facility] [address] [address] [address] Tequila Du Cholesterol in LDL [Mass/Vol] 175.8 mg/dL Normal [facility] Comment on above: Performed By: #### A 1C #### [facility] [address] [address] [address] Tequila Du Cholesterol.total/Cho lesterol in HDL [Mass ratio] 6.6 {ratio} Normal [facility] Comment on above: Performed By: #### A 1C #### [facility] [address] [place] [address] Dr. Tequila Du HDL NORMAL > or = 60 mg/dl - LO W CARDIOVASCULAR RISK <40 mg/dl - HIGH CARDIOVASCULAR RISK Normal [facility] Comment on above: Performed By: #### A 1C #### [facility] [address] [place] [address] Dr. Tequila Du LDL CALC NORMAL SEE BELOW Normal [facility] Comment on above: Result Comment: <100 mg/dl OPTIMAL 100 - 129 mg/dl NEAR OR ABOVE OPTIMAL 130 - 159 mg/dl BORDERLINE HIGH 160 - 189 mg/dl HIGH >190 mg/dl VERY HIGH Performed By: #### A 1C #### [facility] [address] [address] [address] Tequila Du Triglyceride [Mass/Vol] 166 mg/dL Critically high <=150 [facility] Comment on above: Performed By: #### A 1C #### [facility] [address] [address] [address] Tequila Du VLDL CALC 33.2 mg/dL Normal [facility] Comment on above: Performed By: #### A 1C #### [facility] [address] [place] [address] Dr. Tequila Du PROF 14(COMP METB)on 021 Albumin [Mass/Vol] 4.1 g/dL Normal 3.5-5.0 [facility] Comment on above: Performed By: #### C MP, T7, LIPID, TSH #### [facility] [address] [address] [address] Tequila Du Albumin/Globulin [Mass ratio] 1.3 {ratio} Normal [facility] Comment on above: Performed By: #### C MP, T7, LIPID, TSH #### [facility] [address] [address] [address] Tequila Du ALP [Catalytic activity/Vol] 68 U/L Normal 38-126 [facility] Comment on above: Performed By: #### C MP, T7, LIPID, TSH #### [facility] [address] [address] [address] Tequila Du ALT [Catalytic activity/Vol] 54 U/L Critically high 9-52 [facility] Comment on above: Performed By: #### C MP, T7, LIPID, TSH #### [facility] [address] [address] [address] Tequila Du Anion gap [Moles/Vol] 13.1 mmol/L Normal [facility] Comment on above: Performed By: #### C MP, T7, LIPID, TSH #### [facility] [address] [address] [address] Tequila Du AST [Catalytic activity/Vol] 20 U/L Normal 14-36 [facility] Comment on above: Performed By: #### C MP, T7, LIPID, TSH #### [facility] [address] [address] [address] Tequila Du Bilirubin [Mass/Vol] 0.4 mg/dL Normal 0.2-1.3 [facility] Comment on above: Performed By: #### C MP, T7, LIPID, TSH #### [facility] [address] [address] [address] Tequila Du Calcium [Mass/Vol] 9.6 mg/dL Normal 8.4-10.2 [facility] Comment on above: Performed By: #### C MP, T7, LIPID, TSH #### [facility] [address] [place] [address] Dr. Tequila Du Chloride [Moles/Vol] 102 mmol/L Normal 98-107 [facility] Comment on above: Performed By: #### C MP, T7, LIPID, TSH #### [facility] [address] [place] [address] Dr. Tequila Du CO2 [Moles/Vol] 29.2 mmol/L Normal 22.0-30.0 [facility] Comment on above: Performed By: #### C MP, T7, LIPID, TSH #### [facility] [address] [place] [address] Dr. Tequila Du Creatinine [Mass/Vol] 0.58 mg/dL Normal 0.52-1.04 [facility] Comment on above: Performed By: #### C MP, T7, LIPID, TSH #### [facility] [address] [place] [address] Dr. Tequila Du EGFR-AF MEXICAN >60 Normal >=60 [facility] Comment on above: Performed By: #### C MP, T7, LIPID, TSH #### [facility] [address] [place] [address] Dr. Tequila Du EGFR-NON AF [place]ICAN >60 Normal >=60 [facility] Comment on above: Performed By: #### C MP, T7, LIPID, TSH #### [facility] [address] [address] [address] Tequila Du Globulin (S) [Mass/Vol] 3.2 g/dL Normal [facility] Comment on above: Performed By: #### C MP, T7, LIPID, TSH #### [facility] [address] [address] [address] Tequila Du Glucose [Mass/Vol] 92 mg/dL Normal 74-106 [facility] Comment on above: Performed By: #### C MP, T7, LIPID, TSH #### [facility] [address] [place] [address] Dr. Tequila Du Potassium [Moles/Vol] 4.3 mmol/L Normal 3.4-5.0 [facility] Comment on above: Performed By: #### C MP, T7, LIPID, TSH #### [facility] [address] [place] [address] Dr. Tequila Du Protein [Mass/Vol] 7.3 g/dL Normal 6.1-8.2 [facility] Comment on above: Performed By: #### C MP, T7, LIPID, TSH #### [facility] [address] [place] [address] Dr. Tequila Du Sodium [Moles/Vol] 140 mmol/L Normal 137-145 [facility] Comment on above: Performed By: #### C MP, T7, LIPID, TSH #### [facility] [address] [place] [address] Dr. Tequila Du Urea nitrogen [Mass/Vol] 7.0 mg/dL Normal 7.0-17.0 [facility] Comment on above: Performed By: #### C MP, T7, LIPID, TSH #### [facility] [address] [address] [address] Tequila Du Urea nitrogen/Creatinine [Mass ratio] 12.1 mg/mg Normal [facility] Comment on above: Performed By: #### C MP, T7, LIPID, TSH #### [facility] [address] [place], [place] [address] Dr. Tequila Du TSHon 01-26-2021 TSH 1.581 uIU/mL Normal 0.470-4.680 [facility] Comment on above: Performed By: #### A 1C #### [facility] [address] [place], [place] [address] Dr. Tequila Du TSH RANGE SEE BELOW Normal [facility] Comment on above: Result Comment: <0.3 4 UIU/ml HYPERTHYROID 0.34-5.60 UIU/ml EUTHYROID >5.60 UIU/ml HYPOTHYROID Performed By: #### A 1C #### [facility] [address] [address] [address] Tequila Du Vital Signs Date Time Vital Sign Value Performing Clinician Faci lity 12-21-2023 10:15-0500 Diastolic blood pressure 86 mm[Hg] Komal Fausting DO Work Phone: [facility] [employer] 12-21-2023 10:15-0500 Heart rate 67 /min Komal Fausting DO Work Phone: [facility] [employer] 12-21-2023 10:15-0500 Respiratory rate 12 /min Komal Fausting DO Work Phone: [facility] [employer] 12-21-2023 10:15-0500 SaO2% (BldA) [Mass fraction] 94 % [facility] Ustrong [facility]-21-2023 10:15-0500 Systolic blood pressure 145 mm[Hg] [facility]usting [facility] 12-21-2023 09:30-0500 Body temperature 97.2 [degF] Komal Fausting DO Work Phone: [facility] [employer] 12-21-2023 06:30-0500 Body height 165.1 cm Komal Fausting DO Work Phone: [facility] 12-21-2023 06:30-0500 Body mass index (BMI) [Ratio] 29.82 kg/m2 Komal Odomy Schmid DO Work Phone: [facility] 12-21-2023 06:30-0500 Body weight 81.28 kg Komal Odomy Schmid DO Work Phone: [facility] Encounters Encounter Date Encounter Type Care Provider Facility Start: 05-25-2024 End: 05-25-2024 ambulatory [facility] Start: 05-25-2024 End: 05-25-2024 Subsequent hospital visit by physician aG Logan MD Work Phone: [facility] Comment on above: Vaginal discharge Start: 05-11-2024 End: 05-11-2024 ambulatory GA [facility] Start: 05-11-2024 End: 05-11-2024 Subsequent hospital visit by physician Ga Logan MD Work Phone: [facility] Comment on above: Postcoital bleeding; Vaginal discharge; S/P hysterectomy Start: 12-21-2023 End: 12-21-2023 [facility] Start: 12-21-2023 End: 12-21-2023 Subsequent hospital visit by physician Komal Schmid DO Work Phone: [facility] Comment on above: Postoperative pain ( Primary Dx); Menorrhagia with regular cycle; Uterine leiomyoma, unspecified location; Adenomyosis Start: 08-05-2023 End: 08-05-2023 ambulatory [facility] Start: 08-05-2023 Encounter for gynecological examination (general) (routine) without abnormal findings [facility] Start: 08-05-2023 End: 08-05-2023 Patient encounter procedure Ga Logan MD Work Phone: [facility] Start: 08-05-2023 End: 08-05-2023 Subsequent hospital visit by physician Ga Logan MD Work Phone: [facility] Comment on above: Women's annual routi ne gynecological examination Start: 12-04-2021 Encounter for genera l adult medical examination without abnormal findings DR GA LOGAN [facility] Start: 11-30-2021 End: 12-01-[address] GA LOGAN Facility:[facility] Start: 11-30-2021 End: 12-01-2021 Encounter for general adult medical examination without abnormal findings DR GA LOGAN Facility:[facility] Start: 01-26-2021 End: 01-27-[address] GA LOGAN Facility:[facility] Procedures Date Procedure Procedure Detail Performing Clinician Start: 05-25-2024 Iadna yamilet specie s direct probe tq Sue Streeter PA-C Work Phone: Start: 12-21-2023 Urine test visual color cmprsn emmanuel Schmid DO Work Phone: Start: 08-05-2023 Microscopic observat ion [Identifier] in Cervix by Cyto stain Komal Schmid DO Work Phone: H/O: hysterectomy S/P hysterectomy Samira Logan MD Work Phone: Plan of Treatment Date Care Activity Detail Author Start: 08-04-2026 Screening for malign ant neoplasm of cervix [facility] Start: 05-04-2025 Depression Screen Depression Screen [facility] Start: 09-09-2024 Influenza vaccination Flu vacc ine (Season Ended) [facility] Start: 07-07-2024 Depression Screen Depression Screen [facility] Start: 06-14-2024 End: 06-14-2024 Patient encounter procedure 06/14/2024 3:15 PM EDT Office Visit [facility] [address] [place] [address] Komal Banks DO [address] [place] [address] [place] [address] Annual [facility] Comment on above: Annual Start: 05-25-2024 End: 05-25-2024 Patient encounter procedure 05/25/2024 8:45 AM EDT Office Visit [facility] [address] [place] [address] Sue Streeter PA-C [address] [place] [address] 2 wk fu [facility] Comment on above: 2 wk fu Start: 01-26-2024 End: 01-26-2024 Patient encounter procedure 01/26/2024 3:45 PM EST Office Visit [facility] [address] [place] [address] Komal aSnchez DO [address] [facility] [place] [address] 6 wks [facility] Comment on above: 6 wks Start: 12-30-2023 End: 12-30-2023 Patient encounter procedure 12/30/2023 10:30 AM EST Office Visit [facility] [address] [place] [address] Sue Streeter PA-C [address] [place] [address] 2wks [facility] Comment on above: 2wks Start: 12-21-2023 End: 12-21-2023 Laps total hysterect 250 gm/< w/rmvl tube/ovary HYSTERECTOMY VAGINAL LAPAROSCOPIC ROBOTIC ASSISTED Menorrhagia with regular cycle Uterine leiomyoma, unspecified location Adenomyosis 12/21/2023 7:33 AM EST [facility] Start: 10-11-2023 COVID-19 Vaccine () COVID-19 Vaccine () [facility] Start: 10-11-2023 COVID-19 Vaccine ( season) COVID-19 Vaccine ( season) [facility] Start: 09-10-2023 Influenza vaccination [facility] Start: 2022 Lipid panel [facility] Start: 2022 Screening for malign ant neoplasm of breast Breast cancer screen [facility] Start: 2017 Diabetes screen Diabetes screen [facility] Start: 2012 Screening for malign ant neoplasm of cervix [facility] Start: 05-29-2003 Screening for malign ant neoplasm of cervix Pap smear [facility] Start: 2001 DTaP/Tdap/Td vaccine (1 - Tdap) DTaP/Tdap/Td vaccine (1 - Tdap) [facility] Start: 2001 Hepatitis B vaccine (1 of 3 - + 3-dose series) Hepatitis B vaccine (1 of 3 - + 3-dose series) [facility] Start: 2001 Pneumococcal 0-49 ye ars Vaccine (1 of 2 - PCV) Pneumococcal 0-49 years Vaccine (1 of 2 - PCV) [facility] Start: 2000 Hepatitis C screening Hepatitis C sc reen [facility] Start: 1997 HIV screening HIV screen [facility] Start: 05-29-1995 Varicella vaccine (1 of 2 - 13+ 2-dose series) Varicella vaccine (1 of 2 - 13+ 2-dose series) [facility] Start: 1988 Pneumococcal 0-64 ye ars Vaccine (1 of 2 - PCV) Pneumococcal 0-64 years Vaccine (1 of 2 - PCV) [facility] Start: 05-29-1983 Varicella vaccine (1 of 2 - 2-dose childhood series) Varicella vaccine (1 of 2 - 2-dose childhood series) [facility] Start: 1982 COVID-19 Vaccine (#1) COVID-19 Vacci ne (#1) [facility] Start: 1982 Hepatitis B vaccine (1 of 3 - 3-dose series) Hepatitis B vaccine (1 of 3 - 3-dose series) [facility] End: 08-05-2023 Cytopathology procedure, preparation of smear, genital source [facility] Lab Routine Women's annual routine gynecological examination 1 Occurrences starting 08/05/2023 until 08/05/2023 [employer] Phone: Comment on above: 1 Occurrences starti ng 08/05/2023 until 08/05/2023 End: 12-21-2023 INITIATE PACU OXYGEN THERAPY PROTOCOL Initiate PACU Oxygen Therapy Protocol Respiratory Care Routine Continuous until discontinued starting 12/21/2023 [facility] Phone: Comment on above: Continuous until dis continued starting 12/21/2023 Oxygen therapy [[facility]] Initiate Oxygen Therapy Protocol Respiratory Care Routine As Needed until discontinued starting 12/21/2023 [facility] Comment on above: As Needed until disc ontinued starting 12/21/2023 Pathology study Surgical Patholo gy Lab Routine Menorrhagia with regular cycle Uterine leiomyoma, unspecified location Adenomyosis Release Upon Ordering for 1 Occurrences starting 12/21/2023 [facility] Phone: Comment on above: Release Upon Orderin g for 1 Occurrences starting 12/21/2023 End: 05-11-2024 Vaginitis DNA Probe [facility] Comment on above: 1 Occurrences starti ng 05/11/2024 until 05/11/2024 Payers Date Payer Category Payer Private Health Insurance [id number] 1982 Unknown [id number] 1982 Unknown [id number] 1982 Unknown [id number] 1982 Unknown [id number] 1982 Unknown [id number] [id number] 1982 Unknown [id number] [id number] 1959 Unknown [id number] Social History Date Type Detail Facility Start: 08-05-2023 [facility] History of tobacco use Cigarette Smoker [employer] Start: 08-05-2023 End: 12-21-2023 Cigarettes smoked current (pack per day) - Reported 0.5 [facility] Start: 08-05-2023 Tobacco use and exposure Smoke less tobacco non-user [facility] Start: 12-21-2023 End: 01-26-2024 Alcoholic beverage intake Ex-drinker (finding) [facility] Start: 12-21-2023 End: 05-08-2024 Tobacco use panel [facility] How hard is it for y ou to pay for the very basics like food, housing, medical care, and heating Patient declined [facility] (I/We) worried yanique ray (my/our) food would run out before (I/we) got money to buy more. Never true [facility] At any time in the p ast 12 months, were you homeless or living in long term [including now]? No [facility] Start: 1982 Sex assigned at Not on file [employer] Start: 1980 Sex assigned at Female [facility] [employer] Start: 07-07-2023 Sex Female (finding) [facility] Start: 05-08-2024 Gender identity Identifies as female gender (finding) [facility] Start: 05-08-2024 Sexual orientation Heterosexual (fin ace) [facility] History of Present illness Narrative 12-21-2023 Rafaela Mccabe, ISAIAH - 12/21/2023 10:29 AM Martha Villafana RN - 12/15/2023 1:46 PM EST Note Date & Type Note Facility 12-21-2023 History of Present illness Narrative IV Sedation Discharge Criteria Inpatients must meet Criteria 1 through 7. All other patients are either YES or N/A. If a NO is chosen then Surgeon must be notified. 1. Minimum 30 minutes after last dose of sedative medication, minimum 120 minutes after last dose of reversal agent. Yes 2. Systolic BP stable within 20 mmHg for 30 minutes & systolic BP between 90 & 180 or within 10 mmHg of baseline. Yes 3. Pulse between 60 and 100 or within 10 bpm of baseline. Yes 4. Spontaneous respiratory rate >/= 10 per minute. Yes 5. SaO2 >/= 95 or >/= baseline. Yes 6. Able to cough and swallow or return to baseline function. Yes 7. Alert and oriented or return to baseline mental status. Yes 8. Demonstrates controlled, coordinated movements, ambulates with steady gait, or return to baseline activity function. Yes 9. Minimal or no pain or nausea, or at a level tolerable and acceptable to patient. Yes 10. Takes and retains oral fluids as allowed. Yes 11. Procedural / perioperative site stable. Minimal or no bleeding. Yes 12. If GI endoscopy procedure, minimal or no abdominal distention or passing flatus. N/A 13. Written discharge instructions and emergency telephone number provided. Yes 14. Accompanied by a responsible adult. Yes Patient instructed on the pre-operative, intra-operative, and post-operative process. Patient instructed on NPO status. Medication instructions and pre operative instruction sheet reviewed with the patient. CHG skin prep instructions reviewed with patient. Patient will hold vitamins/supplements. She will take her protonix the night before as usual. Billing phone number given to patient per her request. documented in this encounter [facility] Discharge instructions 12-21-2023 Discharge Instructions Note Date & Type Note Facility 12-21-2023 Hospital Discharg e instructions Sue Streeter PA-C - 12/21/2023 7:43 AM EST SAME DAY SURGERY DISCHARGE INSTRUCTIONS 1. Do not drive or operate hazardous machinery for 24 hours. 2. Do not make important personal or business decisions for 24 hours. 3. Do not drink alcoholic beverages for 24 hours. 4. Do not smoke tobacco products for 24 hours. 5. Patient should not be left alone for 12-24 hours following surgical procedure. 6. Eat light foods (Jell-O, soups, etc....) and drink plenty of fluids (water, Sprite, etc...) up to 8 glasses per day, as you can tolerate. 7. If your bandages become soaked with bright red blood, place another dressing pad over your bandages. (DO NOT remove original bandage.) Call your surgeon for further instructions. A small amount of bright red blood is to be expected. 8. Wash hands before and after incision care. It is important to practice good personal hygiene during the post op period. 9. You may remove your dressing the morning following surgery; leave the steri-strips in place, they will fall off on their own. If they have not fallen off in 7-10 days, please remove them. 10. If no drainage from incisions you may shower. 11. Limit your activities for 24 hours. Do not engage in heavy work until your surgeon gives you permission. DO NOT lift anything heavier than 10 pounds. You may go up & down stairs and do any activity that can be done comfortably. 12. Report the following signs or any questions regarding your physical condition to your surgeon immediately: Excessive swelling of, or around the wound area. Redness or pus-like drainage Temperature of 100 degrees (F) or above. Excessive pain. If unable to urinate 4 hours after surgery. If bleeding at surgery site continues after 5-10 minutes of pressure. 13. Pain Control: Take pain meds as prescribed. You may use over the counter meds like Acetaminophen or Ibuprofen if not part of the meds already prescribed. While on narcotic pain meds DO NOT drive, operate machinery or make business decisions. 14. Try to avoid constipation (no bowel movement) by using over the counter Colace once or twice daily and increasing your fluid intake. Please call if no bowel movement after increasing fluid intake, use of Milk of Magnesia, Pericolace (laxative) or Dulcolax suppositories. 15. No sexual activity, tampons, douches, sitting in hot tubs/saunas or swimming in pools/ponds for 6 weeks or until cleared by your surgeon. 16. Call your surgeon for any questions regarding your surgery. 17. Call for an appointment to see NOREEN Antonio in [address] Banks -- [place] [facility] [phone] [place] office [phone] documented in this encounter [facility] Evaluation note Note Date & Type Note Facility Evaluation note Diagnosis Postoperative pain- Primary Other acute postoperative pain Menorrhagia with regular cycle Excessive or frequent menstruation Uterine leiomyoma, unspecified location Adenomyosis Endometriosis of uterus documented in this encounter [facility] note Note Date & Type Note Facility Evaluation note Diagnosis Women's annual routine gynecological examination documented in this encounter [facility] note Note Date & Type Note Facility Evaluation note Diagnosis Postcoital bleeding Vaginal discharge Leukorrhea, not specified as infective S/P hysterectomy Acquired absence of both cervix and uterus documented in this encounter [facility] note Note Date & Type Note Facility Evaluation note Diagnosis Vaginal discharge Leukorrhea, not specified as infective documented in this encounter [facility] Summary Purpose Family History No Family History Records FoundNo Family History Records Found Advance Directives No Advanced Directives Records Found Date Activated Date Inactivated Comments 12/21/2023 6:15 AM Date Activated Date Inactivated Comments 12/21/2023 6:15 AM 12/21/2023 12:50 PM Additional Source Comments INFORMATION SOURCE (unrecogn ized section and content) DATE CREATED AUTHOR 12/05/2021 [facility] DATE CREATED AUTHOR AUTHOR'S ORGANIZ ATION 05/27/2024 [facility] Reason for Visit (unrecogniz ed section and content) Specialty Diagnoses / Procedures Referred By Jakob stanley Referred To Contact Diagnoses Menorrhagia with regular cycle Uterine leiomyoma, unspecified location Adenomyosis Menorrhagia with regular cycle [N92.0] Uterine leiomyoma, unspecified location [D25.9] Adenomyosis [N80.03] Procedures MS LAPS TOTAL HYSTERECT 250 GM/< W/RMVL TUBE/OVARY HYSTERECTOMY VAGINAL LAPAROSCOPIC ROBOTIC ASSISTED - POSSIBLE RIGHT SALPING OOPHORECTOMY, POSSIBLE LAPAROSCOPIC COLPOPEXY Komal Sanchez, DO [address] [place] [address] [facility] [address] [place] [address] Referral ID Status Reason Start Date Expiration Date Visits Re quested Visits Authorized [id number] 1 1 Ordered Prescriptions (unrec ognized section and content) Prescription Sig Dispensed Refills Start Date End Da te estradiol (VIVELLE-DOT) 0.025 MG/24HR PTTW Place 1 patch onto the skin Twice a Week 8 patch 12/21/2023 HYDROcodone-acetaminophe n (NORCO) 5-325 MG per tabletIndications:Postop erative pain Take 1 tablet by mouth every 6 hours as needed for Pain for up to 5 days. Intended supply: 5 days. Take lowest dose possible to manage pain Max Daily Amount: 4 tablets 10 tablet 12/21/2023 12/26/2023 ketorolac (TORADOL) 10 MG tablet Take 1 tablet by mouth every 6 hours as needed for Pain 20 tablet 12/21/2023 12/20/2024 Scheduled Active and Recently Administ ered Medications (unrecognized section and content) Medication Order 12/19/2023 12/20/2023 12/21/2023 acetaminophen (TYLENOL) tablet 650 mg (COMPLETED) 650 mg, Oral, ONCE, 1 dose, On Thu12/21/23 at 0645, Maximum dose of acetaminophen is 4000 mg from all sources in 24 hours., Pre-op (day of surgery) 0645 (Given - Provid er: Afua Casey RN) ceFAZolin (ANCEF) 2000 mg in 20 mL IV syringe (COMPLETED) 2,000 mg, IntraVENous, VICE PRESIDENT OF BUSINESS DEVELOPMENT TO O.R., 1 dose, On Thu12/21/23 at 0645, Antimicrobial Indications: Surgical Prophylaxis, Administer within 1 hour prior to incision. Administer over 5 mins., Pre-op (day of surgery) 0750 (Given - Provid er: Divya Paez APRN - RESORT DESK CLERK) dimenhyDRINATE (DRAMAMINE) tablet 50 mg (COMPLETED) 50 mg, Oral, ONCE, 1 dose, On Thu12/21/23 at 0645, Pre-op (day of surgery) 0645 (Given - Provid er: Afua Casey RN) enoxaparin (LOVENOX) injection 40 mg (COMPLETED) 40 mg, SubCUTAneous, ONCE, 1 dose, On Thu12/21/23 at 0645, Indication of Use: Prophylaxis-DVT/PE, Administer by deep subCUTAneous injection with pt lying down. Alternate injection sites on abdominal wall. Do not rub site after injection. Check with provider prior to any invasive procedure., Pre-op (day of surgery) 0645 (Given - Provid er: Afua Casey RN) sodium chloride flush 0.9 % injection 5-40 mL 5-40 mL, IntraVENous, EVERY 12 HOURS SCHEDULED (2 times per day), First dose on Thu12/21/23 at 0900, Until Discontinued, For Line Patency: Peripheral IV = 5 mL; Midline or Central Line = 10 mL/lumen. If following IV push medication, administer flush at same rate as the IV push. Flush volume is determined by type of infusion therapy being given. For non-viscous solutions use: Peripheral IV = 5 mL Midline or Central Line = 10 mL/lumen For viscous solutions (i.e. blood components, parenteral nutrition, contrast media, or after obtaining blood sample) use: Peripheral IV = 10 mL Midline or Central Line = 20 mL/lumen, Pre-op (day of surgery) 0900 (Due)2099 (Due) sodium chloride flush 0.9 % injection 5-40 mL 5-40 mL, IntraVENous, EVERY 12 HOURS SCHEDULED (2 times per day), First dose on Thu12/21/23 at 0930, Until Discontinued, For Line Patency: Peripheral IV = 5 mL; Midline or Central Line = 10 mL/lumen. If following IV push medication, administer flush at same rate as the IV push. Flush volume is determined by type of infusion therapy being given. For non-viscous solutions use: Peripheral IV = 5 mL Midline or Central Line = 10 mL/lumen For viscous solutions (i.e. blood components, parenteral nutrition, contrast media, or after obtaining blood sample) use: Peripheral IV = 10 mL Midline or Central Line = 20 mL/lumen, PACU only 0930 (Due)2100 (Due) Continuous Medication Order 12/19/2023 12/20/2023 12/21/2023 lactated ringers infusion IntraVENous, at 100 mL/hr, CONTINUOUS, Starting on Thu12/21/23 at 0645, Pre-op (day of surgery) 0651 (New Bag - Prov ider: Afua Casey RN)0735 (NoRateChange - Provider: VIRGILIO Hoskins CRNA)0857 (Paused - Provider: VIRGILIO Hoskins CRNA - Comment: Switch to gravity)0858 (Restarted - Provider: VIRGILIO Hoskins CRNA)1027 (Stopped - Provider: Rafaela Mccabe RN) PRN Medication Order 12/19/2023 12/20/2023 12/21/2023 0.9 % sodium chloride infusion IntraVENous, at 5-250 mL/hr, PRN, if patient receiving piggyback infusions and maintenance fluids are not ordered, Starting on Thu12/21/23 at 0615, For piggyback infusion, administer at same rate as piggyback for a total of 25 mL. Enter 25 mL into dose field and piggyback rate into rate field of order. If piggyback is infusing at a rate less than 100 mL/hr, enter 25 mL into dose field and 100 mL/hr into rate field of order., Pre-op (day of surgery) 0.9 % sodium chloride infusion IntraVENous, at 5-250 mL/hr, PRN, if patient receiving piggyback infusions and maintenance fluids are not ordered, Starting on Thu12/21/23 at 0910, For piggyback infusion, administer at same rate as piggyback for a total of 25 mL. Enter 25 mL into dose field and piggyback rate into rate field of order. If piggyback is infusing at a rate less than 100 mL/hr, enter 25 mL into dose field and 100 mL/hr into rate field of order., PACU only fentaNYL (SUBLIMAZE) injection 25 mcg 25 mcg, IntraVENous, EVERY 5 MIN PRN, 2 doses, Starting on Thu12/21/23 at 0910, Until Discontinued, Pain Moderate (4-6), For Phase I. If Phase II oral narcotics have been administered in the last 60 minutes, do not administer IV narcotics unless specifically approved by provider., PACU only fentaNYL (SUBLIMAZE) injection 50 mcg 50 mcg, IntraVENous, EVERY 5 MIN PRN, 2 doses, Starting on Thu12/21/23 at 0910, Until Discontinued, Pain Severe (7-10), For Phase I. If Phase II oral narcotics have been administered in the last 60 minutes, do not administer IV narcotics unless specifically approved by provider., PACU only metoclopramide (REGLAN) injection 10 mg 10 mg, IntraVENous, ONCE PRN, 1 dose, Starting on Thu12/21/23 at 0910, Until Thu12/22/23 at 0910, Nausea, Secondary antiemetic therapy., PACU only naloxone 0.4 mg in 10 mL sodium chloride syringe IntraVENous, PRN, Opioid Reversal, Starting on Thu12/21/23 at 0910, PRN if respiratory rate is less than 6/min and patient is difficult to arouse then notify physician STAT. Mix 9 mL of sodium chloride 0.9% with 0.4 mg (1 mL) of naloxone (NARCAN) in 10 mL syringe. (Note: dilution is 0.04 mg/mL) Give 0.08 mg (2 mL of special dilution), slow IV push, repeat up to 0.4 mg (10 mL) or until patient is responsive to physical stimulation and respiratory rate is equal to or greater than 6 breaths/min. Continue to observe, if no response within 3 minutes of administration of 0.4 mg (10 mL) total, repeat dose (0.4 mg as administered previously). Concentration 0.04 mg/mL, PACU only ondansetron (ZOFRAN) injection 4 mg 4 mg, IntraVENous, ONCE PRN, 1 dose, Starting on Thu12/21/23 at 0910, Until Thu12/22/23 at 0910, Nausea, Initial antiemetic therapy., PACU only oxyCODONE (ROXICODONE) immediate release tablet 5 mg 5 mg, Oral, ONCE PRN, 1 dose, Starting on Thu12/21/23 at 0910, Until Thu12/22/23 at 0910, Pain Moderate (4-6), Pain Severe (7-10), PHASE II, PACU only sodium chloride flush 0.9 % injection 5-40 mL 5-40 mL, IntraVENous, PRN, Starting on Thu12/21/23 at 0615, Until Discontinued, Line Care, After every IV line use, For Line Patency: Peripheral IV = 5 mL; Midline or Central Line = 10 mL/lumen. If following IV push medication, administer flush at same rate as the IV push. Flush volume is determined by type of infusion therapy being given. For non-viscous solutions use: Peripheral IV = 5 mL Midline or Central Line = 10 mL/lumen For viscous solutions (i.e. blood components, parenteral nutrition, contrast media, or after obtaining blood sample) use: Peripheral IV = 10 mL Midline or Central Line = 20 mL/lumen, Pre-op (day of surgery) sodium chloride flush 0.9 % injection 5-40 mL 5-40 mL, IntraVENous, PRN, Starting on Thu12/21/23 at 0910, Until Discontinued, Line Care, After every IV line use, For Line Patency: Peripheral IV = 5 mL; Midline or Central Line = 10 mL/lumen. If following IV push medication, administer flush at same rate as the IV push. Flush volume is determined by type of infusion therapy being given. For non-viscous solutions use: Peripheral IV = 5 mL Midline or Central Line = 10 mL/lumen For viscous solutions (i.e. blood components, parenteral nutrition, contrast media, or after obtaining blood sample) use: Peripheral IV = 10 mL Midline or Central Line = 20 mL/lumen, PACU only Care Teams (unrecognized sec tion and content) [employer] Relationship Specialty Start Date End Date Ga Logan MD [facility] [place] [address] PCP - General Family Medicine 07/07/23 [employer] Relationship Specialty Start Date End Date Ga Logan MD [address] [place] [address] PCP - General Family Medicine 07/07/23 [employer] Relationship Specialty Start Date End Date Ga Logan MD [address] [place] [address] PCP - General Family Medicine 07/07/23 [employer] Relationship Specialty Start Date End Date Ga Logan MD [address] [place] [address] PCP - General Family Medicine 07/07/23 FOR RECORDS PERTAINING TO PATIENTS WHO ARE [...] BE BASED ON THE PRIMARY CLINICAL RECORDS. [employer] provides no warranty or guarantee of the accuracy or completeness of information in this document.
[2024-09-23 09:04] LABS: Hematocrit 45.0 % (36.0-48.0); Hemoglobin 15.2 g/dL (12.0-16.0); Immature Granulocytes Abs Auto 0.02 10^3/uL (0.00-0.03); Immature Granulocytes Pct Auto 0.3 % (0.0-0.5); Lymphocytes Absolute Auto 2.4 10^3/uL (1.2-3.8); Mean Corpuscular HGB Conc 33.8 g/dL (29.9-35.2); Mean Corpuscular Hemoglobin 28.1 pg (26.7-34.0); Mean Corpuscular Volume 83.3 fL (81.0-99.0); Platelet Count 268 10^3/uL (150-450); Red Blood Count 5.40 10^6/uL (4.20-5.40); White Blood Count 6.6 10^3/uL (4.0-11.0)
[2024-09-23 10:29] LABS: Alanine Aminotransferase 47 U/L (14-59); Albumin Globulin Ratio 1.2; Albumin Level 4.4 g/dL (3.4-5.0); Alkaline Phosphatase 89 U/L (46-116); Anion Gap 15.3; Aspartate Amino Transferase 23 U/L (15-37); Blood Urea Nitrogen 11.0 mg/dL (7.0-18.0); Calcium 9.8 mg/dL (8.5-10.1); Carbon Dioxide 24.6 mmol/L (21.0-32.0); Chloride 105 mmol/L (98-107); Cholesterol 279 mg/dL (<=200); Estimated GFR (African America >60 (>=60 mL/min/1.73m^2); Estimated GFR (Non-African Ame >60 (>=60 mL/min/1.73m^2); Free T3 3.32 pg/mL (2.18-3.98); Globulin 3.6 g/dL; Glucose 98 mg/dL (74-106); HDL Cholesterol 37 mg/dL (40-60); Potassium 3.9 mmol/L (3.5-5.1); Sodium 141 mmol/L (136-145); Thyroid Stimulating Hormone 2.056 uIU/mL (0.358-3.740); Total Protein 8.0 g/dL (6.4-8.2); Triglycerides 245 mg/dL (<=150); VLDL CHOLESTEROL 49.0 mg/dL
[2024-09-23 12:38] LABS: Iron 56.0 ug/dL (50.0-170.0)
== END 2024-09-23 08:26 | disposition home or self-care (01) ==
LOC: LAB 08:28
PROVIDERS: PCP Family Medicine; Visit Provider Family Medicine
DX: Z00.00 Encounter for general adult medical examination without abnormal findings (principal)
CPT/HCPCS: 36415; 80053; 80061; 83036; 83525; 83540; 84436; 84443; 84481; 85025